=== PATIENT | female | born 2000 | race Hispanic/Latino ===

== ENCOUNTER 2023-06-08 00:35 | Emergency (ER) | payer OTHER, SELFPAY ==
[2023-06-08] VITALS (39 sets, daily range): BP systolic 91–130; BP diastolic 39–103; PULSE 81–137; RESP 15–31; TEMP 36.9; O2SAT 91–100
--- NOTE | ~2023-06-08 | CT_ITS ---
Non-contrast Head CT History: Seizure Technique: Axial non-contrast imaging of the brain was performed. Dose reduction technique was used on this scan by utilizing automated exposure control and iterative reconstruction technique. The dose -length product (DLP) was 605.33 mGy-cm. Findings: There is no evidence of intracranial hemorrhage, mass lesion, or acute infarct. Brain par enchyma appears normal. The ventricles and subarachnoid spaces are normal in size. The calvarium ap pears normal. The visualized paranasal sinuses and mastoid air cells are clear. Impression: No significant abnormality seen. Reviewed, dictated and finalized at location . Impression: No significant abnormality seen.
--- NOTE | 2023-06-08 00:40 | ECG_ITS ---
SEE SCANNED COPY FOR CONFIRMED REPORT MTDD
[2023-06-08 01:10] LABS: Basophils Absolute Auto 0.1 K/mm3 (0.0-0.1); Basophils Percent Auto 0.4 % (0.2-1.2); Eosinophils Absolute Auto 0.4 K/mm3 (0-0.3); Eosinophils Percent Auto 2.5 % (0-4.4); Hematocrit 38.2 % (37.0-47.0); Hemoglobin 11.5 g/dL (12.0-15.0); Immature Granulocyte Absolute 0.15 K/mm3 (0.00-0.031); Immature Granulocyte Percent A 1.1 % (0-0.5); Lymphocytes Absolute Auto 4.96 K/mm3 (0.9-3.2); Lymphocytes Percent Auto 35.1 % (18.3-44.2); Mean Corpuscular HGB Conc 30.1 g/dl (32-36); Mean Corpuscular Volume 79.7 fl (80-100); Mean Platelet Volume 10.7 fl (7.4-10.4); Monocytes Absolute Auto 0.7 K/mm3 (0.1-0.6); Monocytes Percent Auto 4.9 % (2.6-8.5); Neutrophils Absolute Auto 7.9 K/mm3 (1.3-6.7); Platelet Count Result 356 k/mm3 (150-375); Red Blood Count 4.79 M/mm3 (4.2-5.4); Red Cell Distribution Width 16.7 % (11.5-14.5); White Blood Count 14.2 K/mm3 (4.5-10.0)
[2023-06-08] MEDS: SODIUM CHLORIDE 0.9% IV 1,000 ML 999 ML IV CONT (01:13)
[2023-06-08 01:39] LABS: Alanine Aminotransferase 15 U/L (6-35); Albumin Level 4.6 g/dL (3.5-5.1); Alkaline Phosphatase 59 U/L (38-126); Anion Gap 8 mmol/L (4-12); Aspartate Amino Transferase 22 U/L (14-36); Bilirubin,Total 0.3 mg/dL (0.2-1.3); Blood Urea Nitrogen 13 mg/dL (7-17); Calcium 9.7 mg/dL (8.4-10.2); Carbon Dioxide 24 mmol/L (22-30); Chloride 106 mmol/L (98-107); Creatine Kinase 75 U/L (30-135); Estimated CRCL calculation 121 ml/min; Estimated Glomerular Filt Rate > 60; Glucose 127 mg/dL (65-110); Lactic Acid Reflex 2.3 mmol/L (0.7-2.0); Magnesium 2.4 mg/dL (1.6-2.3); Potassium 3.8 mmol/L (3.4-5.0); Sodium 138 mmol/L (137-145)
[2023-06-08 01:47] LABS: SPREG INTERNAL CONTROL Positive; Serum Qual hCG Negative
--- NOTE | 2023-06-08 03:05 | ED.GENADULT ---
HPI - General Adult General Chief complaint: Seizure Stated complaint: seizure like activity Time Seen by Provider: 06/08/23 01:14 Related Data Allergies Allergy/AdvReac Type Severity Reaction Status Date / Time No Known Allergies Allergy Verified 06/08/23 00:40 Course Vital Signs Vital signs: Vital Signs Temperature 98.4 F 06/08/23 00:34 Pulse Rate 131 H 06/08/23 00:34 Respiratory Rate 24 H 06/08/23 00:34 Blood Pressure 126/84 06/08/23 00:34 Pulse Oximetry 100 06/08/23 00:34 Oxygen Delivery Room Air 06/08/23 00:34 Temperature 98.4 F 06/08/23 00:34 Pulse Rate 108 H 06/08/23 03:26 Respiratory Rate 20 06/08/23 03:26 Blood Pressure 109/69 06/08/23 03:26 Pulse Oximetry 100 06/08/23 03:26 Oxygen Delivery Room Air 06/08/23 00:44 Medical Decision Making Vital Signs Vital Signs: Vital Signs Temperature 98.4 F 06/08/23 00:34 Pulse Rate 131 H 06/08/23 00:34 Respiratory Rate 24 H 06/08/23 00:34 Blood Pressure 126/84 06/08/23 00:34 Pulse Oximetry 100 06/08/23 00:34 Oxygen Delivery Room Air 06/08/23 00:34 Temperature 98.4 F 06/08/23 00:34 Pulse Rate 108 H 06/08/23 03:26 Respiratory Rate 20 06/08/23 03:26 Blood Pressure 109/69 06/08/23 03:26 Pulse Oximetry 100 06/08/23 03:26 Oxygen Delivery Room Air 06/08/23 00:44 Lab Data 06/08/23 01:03 06/08/23 01:03 Labs: Lab Results 06/08/23 Range/Units 01:03 WBC 14.2 H (4.5-10.0) K/mm3 RBC 4.79 (4.2-5.4) M/mm3 Hgb 11.5 L (12.0-15.0) g/dL Hct 38.2 (37.0-47.0) % MCV 79.7 L (80-100) fl MCH 24.0 L (26-34) pg MCHC 30.1 L (32-36) g/dl RDW 16.7 H (11.5-14.5) % Plt Count 356 (150-375) k/mm3 MPV 10.7 H (7.4-10.4) fl Immature Gran % (Auto) 1.1 H (0-0.5) % Neut % (Auto) 56.0 (45.5-73.1) % Lymph % (Auto) 35.1 (18.3-44.2) % [place] % (Auto) 4.9 (2.6-8.5) % Eos % (Auto) 2.5 (0-4.4) % Baso % (Auto) 0.4 (0.2-1.2) % Lymph # (Auto) 4.96 H (0.9-3.2) K/mm3 [place] # (Auto) 0.7 H (0.1-0.6) K/mm3 Eos # (Auto) 0.4 H (0-0.3) K/mm3 Baso # (Auto) 0.1 (0.0-0.1) K/mm3 Abs Immat Gran (auto) 0.15 H (0.00-0.031) K/mm3 Absolute Neuts (auto) 7.9 H (1.3-6.7) K/mm3 Absolute Nucleated RBC 0.000 (0.0-0.012) K/mm3 Nucleated RBC % 0.0 (0.0-0.2) % Sodium 138 (137-145) mmol/L Potassium 3.8 (3.4-5.0) mmol/L Chloride 106 (98-107) mmol/L Carbon Dioxide 24 (22-30) mmol/L Anion Gap 8 (4-12) mmol/L BUN 13 (7-17) mg/dL Creatinine 0.70 (0.7-1.0) mg/dL Estim Creat Clear Calc 121 ml/min Estimated GFR > 60 (59 - ) Glucose 127 H (65-110) mg/dL Lactic Acid 2.3 H (0.7-2.0) mmol/L Calcium 9.7 (8.4-10.2) mg/dL Magnesium 2.4 H (1.6-2.3) mg/dL Total Bilirubin 0.3 (0.2-1.3) mg/dL AST 22 (14-36) U/L ALT 15 (6-35) U/L Alkaline Phosphatase 59 (38-126) U/L Total Creatine Kinase 75 (30-135) U/L Total Protein 8.0 (6.3-8.2) g/dL Albumin 4.6 (3.5-5.1) g/dL Serum HCG, Qual Negative Discharge Plan Discharge Clinical Impression: New onset seizure Patient Disposition: Home, Self-Care Condition: Improved Instructions: Antibiotic Form, New-Onset Seizure in Adults (ED) Additional Instructions: You are evaluated in the emergency department regarding your new onset of seizure. You were instructed to follow-up with a neurologist and your provided with referral and instructed to call tomorrow and make an appointment. Your CT brain and blood work obtained today were unremarkable. Please return to the emergency department if any new or worsening symptoms develop. You also provided with seizure precautions including no driving, operating machinery, unsupervised swimming until you are cleared by Neurology. Follow-up/Referrals: River Vaughn MD [Physician] - 3 Days PHYSICIAN,SENIOR PRODUCT ENGINEER [Primary Care Provider] - Time of Disposition: 04:17
[2023-06-08 04:06] LABS: Reflex Lactic Acid Yes or No Add Lactic
--- NOTE | 2023-06-15 23:46 | ED.GENADULT ---
HPI - General Adult General Chief complaint: Seizure Stated complaint: seizure like activity Time Seen by Provider: 06/08/23 01:14 History of Present Illness HPI narrative: Patient presents to the ED after new onset sizure activity. Patient denies any previous seizure episodes. Denies any falls or head injury. Seizure was unwitnessed, however, brother did find the patient drooling and post ictal. Upon arrival, patient is A&Ox3. Patient is denying any pain or any symptoms at this time. Related Data Allergies Allergy/AdvReac Type Severity Reaction Status Date / Time No Known Allergies Allergy Verified 06/08/23 00:40 Review of Systems Review of Systems: All systems reviewed & are unremarkable except as noted in HPI and below (HPI) Exam Const: General: healthy appearing, no acute distress and alert Nutritional Appearance: well nourished Orientation/consciousness: patient oriented x3 HENMT: Head: normal to inspection Ears: external ears normal Face and sinus: normal facial exam Mouth: Yes moist mucous membranes Eyes: Conjunctivae: conjunctivae normal Pupils: Equal, round and reactive pupils present EOM: EOMs intact bilaterally Neck: Neck: normal visual inspection and no lymphadenopathy Chest: Chest palpation & inspection: normal inspection of the chest Resp: Effort & Inspection: normal respiratory effort Auscultation: clear to auscultation bilaterally Cardio: Rate: regular rate Rhythm: regular rhythm GI: GI Palp: Yes Soft to palpation, No Tenderness to palpation present (GI), No Guarding due to palpation present (GI) and No Rebound tenderness present Auscultation: normal bowel sounds Skin: General skin exam: normal color Rashes: no rashes Wounds: no wounds Neuro: General: patient oriented x3, moves all extremities, no focal motor deficits and CN's II-XI intact bilaterally Speech: normal speech Gait exam (Neuro): Normal gait present Extrem: General: no clubbing, cyanosis or edema and no pedal edema Psych: Mental Status: mental status grossly normal Affect: normal affect Course Vital Signs Vital signs: Vital Signs Temperature 98.4 F 06/08/23 00:34 Pulse Rate 131 H 06/08/23 00:34 Respiratory Rate 24 H 06/08/23 00:34 Blood Pressure 126/84 06/08/23 00:34 Pulse Oximetry 100 06/08/23 00:34 Oxygen Delivery Room Air 06/08/23 00:34 Temperature 98.4 F 06/08/23 00:34 Pulse Rate 108 H 06/08/23 04:23 Respiratory Rate 21 H 06/08/23 04:23 Blood Pressure 130/66 06/08/23 04:23 Pulse Oximetry 98 06/08/23 04:23 Oxygen Delivery Room Air 06/08/23 00:44 Medical Decision Making MDM Narrative Medical decision making narrative: Blood work and CT brain obtained and reviewed by me revealing no acute process. Patient and mother updated at bedside and instructed that they will need to follow up with Neurology in 3-5 days and they are both agreeable. Patients questions were all answered. She was discharged in stable condition. Vital Signs Vital Signs: Vital Signs Temperature 98.4 F 06/08/23 00:34 Pulse Rate 131 H 06/08/23 00:34 Respiratory Rate 24 H 06/08/23 00:34 Blood Pressure 126/84 06/08/23 00:34 Pulse Oximetry 100 06/08/23 00:34 Oxygen Delivery Room Air 06/08/23 00:34 Temperature 98.4 F 06/08/23 00:34 Pulse Rate 108 H 06/08/23 04:23 Respiratory Rate 21 H 06/08/23 04:23 Blood Pressure 130/66 06/08/23 04:23 Pulse Oximetry 98 06/08/23 04:23 Oxygen Delivery Room Air 06/08/23 00:44 Lab Data 06/08/23 01:03 06/08/23 01:03 Labs: Lab Results 06/08/23 Range/Units 01:03 WBC 14.2 H (4.5-10.0) K/mm3 RBC 4.79 (4.2-5.4) M/mm3 Hgb 11.5 L (12.0-15.0) g/dL Hct 38.2 (37.0-47.0) % MCV 79.7 L (80-100) fl MCH 24.0 L (26-34) pg MCHC 30.1 L (32-36) g/dl RDW 16.7 H (11.5-14.5) % Plt Count 356 (150-375) k/mm3 MPV 10.7 H (7.4-10.4) fl Immature Gran % (Auto) 1.1 H (0-0.5) % Dash
== END 2023-06-08 04:25 | disposition home or self-care (01) ==
PROVIDERS: Emergency Provider Emergency Medicine
DX: R56.9 Unspecified convulsions (principal); R00.0 Tachycardia, unspecified
CPT/HCPCS: 36415; 70450; 80053; 82550; 83605; 83735; 84703; 85025; 93005; 96360; 99284; J7030

== ENCOUNTER 2023-11-12 17:28 | Observation (INO) | payer MEDICAID, SELFPAY ==
[2023-11-12] VITALS (7 sets, daily range): BP systolic 119–132; BP diastolic 67–86; PULSE 90–152; RESP 18–29; TEMP 36.4–37; O2SAT 99–100
--- NOTE | ~2023-11-12 | CT_ITS ---
CT brain wo con Ordering provider: Shan Pimentel MD History: 23 years Female with . head injury, seizure . Comparison: June 08, 2023 Technique: CT of the head without contrast. Radiation reduction technique utilized. The dose-length product was 529.67 mGy-cm. FINDINGS: BRAIN PARENCHYMA AND CSF SPACES: No midline shift, mass effect or hemorrhage. The brain parenchyma a nd CSF spaces are otherwise normal. VISUALIZED PARANASAL SINUSES: Well aerated. MASTOIDS: Well aerated. BONES: The bones appear intact. SOFT TISSUES: Visualized nasopharynx is normal. Superficial soft tissues are normal. IMPRESSION: No acute intracranial findings. Reviewed, dictated and finalized at location A.
--- NOTE | ~2023-11-12 | MR_ITS ---
EXAMINATION: MR brain/brain stem wo/w con DATE: 11/13/2023 07:12 INDICATION: Seizure. TECHNIQUE: Magnetic resonance imaging (MRI) of the brain and brainstem was performed without and with 18 mL MultiHance intravenous contrast. COMPARISON: Head CT 11/12/2023 FINDINGS: The hippocampi are normal and symmetric. There is no intracranial hemorrhage, acute infarct ion, or abnormal intracranial mass lesion. The ventricles are normal in size. There is mild mucosal t hickening in the paranasal sinuses. The orbits are normal. The mastoid air cells are normal. IMPRESSION: 1. Normal brain. Reviewed, dictated and finalized at location A. IMPRESSION: 1. Normal brain.
--- NOTE | 2023-11-12 17:51 | ECG_ITS ---
Test Date: 2023-11-12 17:56:03 Measurements Intervals [place] Rate: 139 P: 45 [place]: 141 QRS: 50 QRSD: 85 T: 34 QT: 299 QTc: 455 Interpretive Statements SINUS TACHYCARDIA BORDERLINE T WAVE ABNORMALITY- ANT/INF LEADS BASELINE ARTIFACT- I, III, AVR, AVL, AVF, V1-V6 ABNORMAL ECG No previous ECG available for comparison Electronically Signed On 11-12-2023 20:19:25 CDT by Timmy Mary D.O.
--- NOTE | 2023-11-12 17:55 | ED.GENADULT ---
HPI - General Adult General Chief complaint: Seizure Stated complaint: seizure Time Seen by Provider: 11/12/23 17:33 History of Present Illness HPI narrative: 23-year-old female presents to the emergency department for evaluation after head a seizure. This would be the patient's 2nd seizure. Patient's 1st seizure was in June. At that time patient was evaluated by Neurology. Patient had a negative head CT at that time. Patient was recommended to have an outpatient MRI. Patient states she has not yet had this MRI. EMS states that the patient was at [facility] when she had a syncopal episode. Family states that the seizure lasted approximately 5 minutes. Related Data Home Medications Medication Instructions Recorded Confirmed No Home Medications 07/11/23 11/12/23 Allergies Allergy/AdvReac Type Severity Reaction Status Date / Time No Known Allergies Allergy Verified 11/12/23 20:10 Review of Systems Review of Systems: All systems reviewed & are unremarkable except as noted in HPI and below PMFSH Past Medical History Medical History (Updated 11/12/23 @ 20:26 by Shan Pimentel MD) Seizure disorder Family History Family History (Updated 11/12/23 @ 20:07 by Lorena Hunter RN) Other Diabetes mellitus Social History Social History Smoking status: Never smoker Alcohol intake: never Substance use: never Do You Feel Safe in your Home?: Yes Lack of Transportation: No Lack of Food: Never True Current Housing: I Have Housing Concerned About Future Housing: No Difficulty Paying Gas/Electric Bills: No Difficulty Paying for Meds: No Currently Unemployed: No Education: High School Diploma/GED Difficulty w/ Childcare or Family Care: No Spiritual care concerns: No Exam Narrative: APPEARANCE: Well appearing, no pain, no distress, well-nourished. HEAD: normocephalic, atraumatic. Mouth: Minor bites to tongue bilaterally, no bleeding EYES: PERRLA/EOMI, conjunctivae clear. NOSE: Normal no drainage EARS:TMS clear with good light reflex. THROAT: Pharynx clear, no exudate. NECK: Supple. No adenopathy, no masses. RESPIRATORY: Airway patent, respirations nonlabored. Clear to auscultation bilaterally, no rales, rhonchi, wheezing. CARDIOVASCULAR: Regular rate and rhythm without murmurs rubs or gallops. ABDOMINAL: Soft, nontender, nondistended, normal bowel sounds MUSCULOSKELETAL: Moves all extremities. Strength/ROM intact, No edema, No calf tenderness. NEURO: Alert. Cranial nerves II through XII intact. Good gait. Good coordination SKIN: Warm, dry. Normal Color Course Vital Signs Vital signs: Vital Signs Temperature 97.5 F L 11/12/23 17:38 Pulse Rate 152 H 11/12/23 17:38 Respiratory Rate 29 H 11/12/23 17:38 Blood Pressure 121/67 11/12/23 17:38 Pulse Oximetry 100 11/12/23 17:38 Oxygen Delivery Room Air 11/12/23 17:38 Temperature 98.6 F 11/12/23 19:08 Pulse Rate 122 H 11/12/23 19:08 Respiratory Rate 24 H 11/12/23 19:08 Blood Pressure 119/67 11/12/23 19:08 Pulse Oximetry 100 11/12/23 19:08 Oxygen Delivery Room Air 11/12/23 17:38 Medical Decision Making [facility] Narrative Medical decision making narrative: 23-year-old female present to the emergency department for evaluation after having her 2nd seizure ever. This would be her 2nd seizure in 5 months. Patient is afebrile but does have a leukocytosis of 13.4. This could be reactive. Patient has a stable hemoglobin of 12.2. Patient does have mild hyperglycemia at 1:24 a.m.. No other acute abnormalities on her CMP. Patient does have blood on her UA, patient denies any urinary tract symptoms and is currently menstruating. Patient had a negative drug screen. Head CT showed no acute abnormalities. Patient had previously been told to have an outpatient MRI but patient does not have health insurance so she was unable to get this done.
[2023-11-12 18:12] LABS: Basophils Absolute Auto 0.1 K/mm3 (0.0-0.1); Basophils Percent Auto 0.4 % (0.2-1.2); Eosinophils Absolute Auto 0.2 K/mm3 (0-0.3); Eosinophils Percent Auto 1.3 % (0-4.4); Hematocrit 40.1 % (37.0-47.0); Hemoglobin 12.2 g/dL (12.0-15.0); Immature Granulocyte Percent A 0.7 % (0-0.5); Lymphocytes Absolute Auto 4.36 K/mm3 (0.9-3.2); Lymphocytes Percent Auto 32.6 % (18.3-44.2); Mean Corpuscular HGB Conc 30.4 g/dl (32-36); Mean Corpuscular Hemoglobin 25.1 pg (26-34); Mean Corpuscular Volume 82.5 fl (80-100); Mean Platelet Volume 10.4 fl (7.4-10.4); Monocytes Absolute Auto 0.6 K/mm3 (0.1-0.6); Monocytes Percent Auto 4.6 % (2.6-8.5); Neutrophils Absolute Auto 8.1 K/mm3 (1.3-6.7); Neutrophils Percent Auto 60.4 % (45.5-73.1); Platelet Count Result 322 k/mm3 (150-375); Red Blood Count 4.86 M/mm3 (4.2-5.4); Red Cell Distribution Width 16.9 % (11.5-14.5); White Blood Count 13.4 K/mm3 (4.5-10.0)
--- NOTE | 2023-11-12 18:15 | PC.NURSE ---
Pt to CT scan via stretcher, on tele monitor
[2023-11-12 18:23] LABS: Alanine Aminotransferase 15 U/L (6-35); Albumin Level 4.3 g/dL (3.5-5.1); Alkaline Phosphatase 64 U/L (38-126); Anion Gap 14 mmol/L (4-12); Aspartate Amino Transferase 21 U/L (14-36); Bilirubin,Total 0.1 mg/dL (0.2-1.3); Blood Urea Nitrogen 10 mg/dL (7-17); Calcium 8.7 mg/dL (8.4-10.2); Carbon Dioxide 19 mmol/L (22-30); Chloride 106 mmol/L (98-107); Estimated CRCL calculation 95 ml/min; Estimated Glomerular Filt Rate > 60; Glucose 124 mg/dL (65-110); Magnesium 2.3 mg/dL (1.6-2.3); Potassium 3.9 mmol/L (3.4-5.0); Sodium 139 mmol/L (137-145)
[2023-11-12] MEDS: SODIUM CHLORIDE 0.9% IV 1,000 ML 999 ML IV CONT ×2 (18:28→20:19)
[2023-11-12 18:41] LABS: Bacteria Urine Rare /hpf; Granular Casts Urine Present /lpf; Need Manual Microscopic Reviewed; RBC Urine >100 /hpf (0-2); Squamous Epithelial Cell Urine Occasional /hpf (Few)
[2023-11-12 18:42] LABS: Add Urine Microscopic? YES; Appearance Urine Cloudy (Clear); Bilirubin Urine Negative (Negative); Blood Urine 3+ (Negative); Color Urine Orange (Yellow); Glucose Urine UA Negative (Negative); Ketones Urine Trace mg/dL (Negative); Leukocyte Esterase Ur 1+ LEU/UL (Negative); Nitrate Urine Negative (Negative); Protein Urine 2+ mg/dL (Negative); Specific Grav Ur 1.027 (1.001-1.035)
[2023-11-12 18:53] LABS: Amphetamine Screen Urine Negative (Negative); Barbiturate Screen Urine Negative (Negative); Benzodiazepines Screen Urine Negative (Negative); Cannabinoid Screen Urine Negative (Negative); Cocaine Screen Urine Negative (Negative); Methadone Screen Urine Negative (Negative); Opiate Screen Urine Negative (Negative); Phencyclidine Screen Urine Negative (Negative)
--- NOTE | 2023-11-12 19:20 | PM.IMHP ---
H&P: HPI History of Present Illness Date/Time: 11/12/23 21:00 Chief Complaint: Seizure. Narrative: This is a very pleasant 23-year-old female with history of seizure in June 2023 presented to the emergency department via EMS for evaluation of seizure activity. The patient provides the following history. She was in her usual state of health when she got up this morning and went grocery shopping with her family this afternoon. According the patient's mother, she suddenly fell backwards on the tile floor and had full body convulsions with frothing of the mouth. This lasted for upwards of 4 minutes before resolving without intervention. The patient did bite the right side of her tongue but there were no reports of incontinence. She does not recall having any prodromal symptoms prior to the seizure activity. She has no complaints at the time my evaluation and denies headache, focal weakness, visual changes, muscle aches, chest pain, shortness of breath, nausea, and vomiting. She has not had any lack of sleep and denies drug and alcohol use. She is not on any medications at home. In the ED: Vital signs on arrival include a blood pressure 121/67, pulse 152, respiratory rate 19, SpO2 100% room air, temperature 97.5?. Labs were significant for WBC count of 13.4, carbon dioxide 18, anion gap 14, glucose 124. Urine drug screen was negative. Brain CT showed no acute findings. She is being admitted in this setting for close monitoring and neurology consultation tomorrow. Review of Systems Review of Systems: 12 systems were reviewed and are negative except for as per HPI. [facility] Past Medical History Medical History (Updated 11/12/23 @ 23:02 by Latisha Alves PA-C) Single seizure (06/2023) Surgical History Surgical History (Updated 11/12/23 @ 23:02 by Latisha Alves PA-C) No history of previous surgery Family History Family History (Updated 11/12/23 @ 23:03 by Latisha Alves PA-C) Other Diabetes mellitus Seizure Social History Social History (Updated 11/12/23 @ 23:03 by Latisha Alves PA-C) Social History: Surrogate medical decision maker: Jacinda Fritz, mother. Code status: Full code. Smoking status: Never smoker Alcohol intake: never Substance use: never Do You Feel Safe in your Home?: Yes Lack of Transportation: No Lack of Food: Never True Current Housing: I Have Housing Concerned About Future Housing: No Difficulty Paying Gas/Electric Bills: No Difficulty Paying for Meds: No Currently Unemployed: No Education: High School Diploma/GED Difficulty w/ Childcare or Family Care: No Spiritual care concerns: No Meds Home Medications and Allergies Home Medications Medication Instructions Recorded Confirmed Type No Home Medications 07/11/23 11/12/23 History Allergies Allergy/AdvReac Type Severity Reaction Status Date / Time No Known Allergies Allergy Verified 11/12/23 20:10 Vital Signs Vital Signs - 24 hr 11/12/23 17:38 11/12/23 17:58 11/12/23 18:04 Temperature 97.5 F L Pulse Rate 152 H 142 H 139 H Respiratory Rate 29 H 18 Blood Pressure 121/67 123/70 Pulse Oximetry 100 100 Oxygen Delivery Room Air 11/12/23 18:46 11/12/23 19:08 11/12/23 19:08 Temperature 98.6 F Pulse Rate 117 H 114 H 122 H Respiratory Rate 20 24 H Blood Pressure 119/67 Pulse Oximetry 100 100 Oxygen Delivery Exam Narrative: General: Well-developed, nontoxic-appearing female sitting up in bed. Weight: 94.3 kg. BMI: 36.8. HEENT: Normocephalic, atraumatic. PERRL, EOMI. Sclera anicteric. Oral mucosa moist. Abrasion on the right side of the anterior thirds of the tongue. Neck: Supple. No midline vertebral tenderness. Respiratory: Lungs are clear to auscultation bilaterally. Cardiovascular: Regular rate and rhythm with S1-S2. Gastrointestinal: Abdomen is soft, nontender, and nondistended with positive bowel sounds. No organomegaly. Skin: Warm and dry.
--- NOTE | 2023-11-12 20:47 | ADMGEN ---
This patient, Niraj Lau, was admitted to 2 Medical Room 246-01. Patient/family oriented to hospital policies and general routines including ID bracelet, bed and alarms, visiting hours, pain management, procedures, bathroom and other care routines, personal items, smoking policy, room service/diet, and visiting hours. Information on how to activate the Rapid Response Team has been discussed. Patient/Family are encouraged to report perceived risks to care and to ask questions if they do not understand what they are told or what they should do.
[2023-11-13] VITALS (9 sets, daily range): BP systolic 115–124; BP diastolic 62–72; PULSE 69–125; RESP 14–18; TEMP 36.7–36.8; O2SAT 99–100
[2023-11-13 05:43] LABS: Hematocrit 36.1 % (37.0-47.0); Mean Corpuscular HGB Conc 30.5 g/dl (32-36); Mean Corpuscular Hemoglobin 24.6 pg (26-34); Mean Corpuscular Volume 80.6 fl (80-100); Mean Platelet Volume 10.1 fl (7.4-10.4); Platelet Count Result 320 k/mm3 (150-375); Red Blood Count 4.48 M/mm3 (4.2-5.4); Red Cell Distribution Width 17.1 % (11.5-14.5); White Blood Count 13.4 K/mm3 (4.5-10.0)
[2023-11-13 05:56] LABS: Anion Gap 5 mmol/L (4-12); Blood Urea Nitrogen 8 mg/dL (7-17); Calcium 8.3 mg/dL (8.4-10.2); Carbon Dioxide 24 mmol/L (22-30); Chloride 110 mmol/L (98-107); Estimated CRCL calculation 138 ml/min; Estimated Glomerular Filt Rate > 60; Glucose 89 mg/dL (65-110); Magnesium 2.3 mg/dL (1.6-2.3); Potassium 3.9 mmol/L (3.4-5.0); Sodium 139 mmol/L (137-145)
--- NOTE | 2023-11-13 10:50 | PM.IMPN ---
Progress Note: A&P Assessment and Plan (1) Seizure: Code(s): R56.9 - Unspecified convulsions Status: Acute Assessment and Plan: The patient presented to the emergency department for evaluation after seizure. This will be her 2nd seizure, the 1st which occurred in June of this year. She saw Dr. Galaviz as an outpatient after that seizure and a workup was ordered however she did not have that done as she did not have insurance. Consider cardiogenic vs neurologic. Monitored on telemetry overnight but no acute findings. Brain MRI negative. EEG ordered. Neuro consult. Consider starting Keppra but will differ to neurology. Continue seizure precautions. Plan DVT prophylaxis - SCDs Code status - full Subjective Date/time seen: 11/13/23 10:50 Interval history: 23yo healthy female here for recurrent seizure. Slept well last night. No chest pain or shortness of breath. No nausea or vomiting. She denies history of tobacco, alcohol or drug use. No numbness, tingling or weakness in her extremities. No pre-seizure symptoms such as strong odor, diaphoresis, chest pain or fluttering or strange feeling Exam Narrative: AF 98.1 118/62 81 18 99% ra Gen - NARD Chest - CTA bilaterally, nml RR CV - RRR S1/S2. Tele showing no significant dysrhythmias Abd - Soft, NT/ND, Positive BS Ext - No pedal edema Neuro - Alert and oriented. Nonfocal exam. Psych - Nml mood and affect Skin - Warm and dry Objective Data Vital Signs Vital Signs: Vital Signs - 24 hr 11/12/23 17:38 11/12/23 17:58 11/12/23 18:04 Temperature 97.5 F L Pulse Rate 152 H 142 H 139 H Respiratory Rate 29 H 18 Blood Pressure 121/67 123/70 Pulse Oximetry 100 100 Oxygen Delivery Room Air 11/12/23 18:46 11/12/23 19:08 11/12/23 19:08 Temperature 98.6 F Pulse Rate 117 H 114 H 122 H Respiratory Rate 20 24 H Blood Pressure 119/67 Pulse Oximetry 100 100 Oxygen Delivery 11/12/23 20:59 11/12/23 21:09 11/13/23 03:26 Temperature 98.4 F 98.1 F Pulse Rate 100 81 Respiratory Rate 18 18 Blood Pressure 132/86 118/62 Pulse Oximetry 99 99 Oxygen Delivery Room Air 11/12/23 21:04 11/13/23 00:00 11/13/23 04:00 Temperature Pulse Rate 90 82 81 Respiratory Rate Blood Pressure Pulse Oximetry Oxygen Delivery 11/13/23 08:00 Temperature Pulse Rate Respiratory Rate Blood Pressure Pulse Oximetry Oxygen Delivery Room Air Intake/Output Intake/Output: Intake & Output 11/10/23 11/11/23 11/12/23 11/13/23 23:59 23:59 23:59 23:59 Intake Total 1999 540 Balance 1999 540 Meds/Results Medications: Active Medications Generic Name Dose Route Start Last Admin Trade Name Freq PRN Reason Stop Dose Admin Acetaminophen 650 mg 11/12/23 23:04 Acetaminophen 325 Mg Tablet PO Q6H PRN Mild Pain (1-3) or Fever Radiology Results: ITS Impressions Head CT 11/12/23 18:39 IMPRESSION: No acute intracranial findings. Brain MRI 11/13/23 08:27 IMPRESSION: 1. Normal brain. Labs Labs: Laboratory Results - last 24 hr 11/12/23 11/12/23 11/12/23 18:07 18:08 18:13 WBC 13.4 H RBC 4.86 Hgb 12.2 Hct 40.1 MCV 82.5 MCH 25.1 L MCHC 30.4 L RDW 16.9 H Plt Count 322 MPV 10.4 Immature Gran % (Auto) 0.7 H Neut % (Auto) 60.4 Lymph % (Auto) 32.6 [place] % (Auto) 4.6 Eos % (Auto) 1.3 Baso % (Auto) 0.4 Lymph # (Auto) 4.36 H [place] # (Auto) 0.6 Eos # (Auto) 0.2 Baso # (Auto) 0.1 Abs Immat Gran (auto) 0.10 H Absolute Neuts (auto) 8.1 H Absolute Nucleated RBC 0.000 Nucleated RBC % 0.0 Sodium 139 Potassium 3.9 Chloride 106 Carbon Dioxide 19 L Anion Gap 14 H BUN 10 Creatinine 0.90 Estim Creat Clear Calc 95 Estimated GFR > 60 Glucose 124 H Lactic Acid Cancelled Calcium 8.7 Magnesium 2.3 Total Bilirubin 0.1 L AST 21 ALT 15 A
--- NOTE | 2023-11-13 13:49 | WPDNEURCNPN ---
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 If this gives her drowsiness he can take at Keppra XR 750 mg 2 tablets at bedtime. Further adjustment if any upon her seizure control and side effects and blood levels can be made as an outpatient. She does need an MRI of the brain and EEG. These are and progress today and we should follow up the results of these. She should to follow-up in my office after 1 or 2 months. She is also advised not to drive for 6 months after the last spell of seizure. Her neurologic examination findings are within acceptable normal limits. I have explained this to the patient and her mother was also present the time of the evaluation. Consult date: 11/13/23 HPI: Niraj Lau is a 23 year old female with a prior history of single spell of seizure presented to the hospital yesterday after having had a seizure-like spell in [facility]. She is apparently walking and suddenly she became confused but kept walking for few more steps. Her family members were there. They caught her since he passed out and she had jerking of the body. According the patient's mother, she suddenly fell backwards on the tile floor and had full body convulsions with frothing of the mouth. This lasted for upwards of 4 minutes before resolving without intervention. The patient did bite the right side of her tongue but there were no reports of incontinence. She does not recall having any prodromal symptoms prior to the seizure activity. She has no complaints at the time my evaluation and denies headache, focal weakness, visual changes, muscle aches, chest pain, shortness of breath, nausea, and vomiting. She has not had any lack of sleep and denies drug and alcohol use. She is not on any medications at home.. Review of Systems Constitutional: Constitutional: Denies chills, Denies fever(s) and Denies weight loss Eyes: Eyes: Denies diplopia and Denies loss of vision ENT: Denies dizziness, Denies hearing loss and Denies tinnitus Cardiovascular: Cardiovascular: Denies chest pain, Denies syncope and Denies dyspnea Respiratory: Respiratory: Denies cough, Denies dyspnea and Denies wheezing Gastrointestinal: Gastrointestinal: Denies abdominal pain, Denies change in bowel habits and Denies vomiting Genitourinary: Genitourinary: Denies urinary incontinence Musculoskeletal: Musculoskeletal: Denies arthralgias and Denies joint swelling Integumentary/Breasts: Skin/Breast: Denies new lesions and Denies rash Neurologic: Reports as per HPI, Denies dizziness, Denies syncope and Denies loss of vision Psychiatric: Psychiatric: Denies anxiety and Denies depression Endocrine: Endocrine: Denies cold intolerance and Denies heat intolerance Hematologic/Lymphatic: Hematologic/Lymphatic: Denies easy bleeding and Denies easy bruising Allergic/Immunologic: Allergic/Immunologic: Denies no additional allergic/immunologic complaints and Denies wheezing PMFSH Past Medical History Medical History (Updated 11/13/23 @ 13:51 by Gato Galaviz MD) 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 Code status: Full code. Smoking status: Never smoker Alcohol intake: never Substance u
[2023-11-13 14:29] LABS: BEDSIDEPREGUCG Negative (Negative)
[2023-11-14] VITALS: PULSE 79
[2023-11-14 04:00] VITALS: PULSE 78
[2023-11-14 04:49] VITALS: BP 119/75; PULSE 77; RESP 18; TEMP 36.8; O2SAT 99
[2023-11-14 08:00] VITALS: PULSE 80
[2023-11-14 08:10] VITALS: O2SAT 99
[2023-11-14] MEDS: levETIRAcetam Tablet 250 MG, levETIRAcetam Tablet 500 MG 750 MG PO (08:41)
--- NOTE | 2023-11-14 10:00 | PM.DS ---
DS: Admitting Diagnosis Discharge Date 11/14/23 Admitting Diagnosis Seizure DS: Discharge Diagnosis Discharge Diagnosis (1) Seizure: Code(s): R56.9 - Unspecified convulsions Status: Acute DS: Summary Hospital Course Reason for hospitalization: 23yo healthy female here for recurrent seizure. Please see H&P for details. Hospital Course: The patient presented to the emergency department for evaluation after seizure. This was her 2nd seizure, the 1st which occurred in June of this year. She saw Dr. Galaviz as an outpatient after that seizure and a workup was ordered however she did not have that done as she did not have insurance. Consider cardiogenic vs neurologic. She was monitored on telemetry but no acute findings noted. Brain MRI negative. EEG completed but results pending. Neuro consult and appreciate their input. Keppra was recommended and started. She was informed that she can not drive and she voices understanding of this. She remained seizure free. She overall did well and was able to be discharged home on 11/14/23. test was negative. Status at Discharge Cognitive/behavioral status at discharge: stable Time Spent with Patient Time attestation: Total time spent providing and/or coordinating discharge services: 32 minutes Time spent: Greater than 30 minutes Exam Narrative: AF 98.2 119/75 77 18 99% ra Gen - NARD Chest - CTA bilaterally, nml RR CV - RRR S1/S2. Tele showing no significant dysrhythmias Abd - Soft, NT/ND, Positive BS Ext - No pedal edema Neuro - Alert and oriented. Nonfocal exam. Psych - Nml mood and affect Skin - Warm and dry DS: Data Data Completed and Pending Labs on day of discharge: Labs from last 24 hours 11/12/23 18:15 POC Urine HCG, Qual Negative Discharge Plan Discharge Attending physician on discharge: Alex Castillo Consulting providers: Gato Galaviz Discharging Clinician: Alex Castillo Anticipated Discharge Date/Time: 11/14/23 10:06 Patient Disposition: Home, Self-Care Activity: no driving Diet: regular Discharge Instructions: Avoid swimming alone, operating equipment or doing anything that would cause you harm if you blacked out. No driving until seen by Neurology. Contact your doctor or call 911 and come to the Emergency Room if you have seizure-like activity or other worrisome symptoms. Follow-up with your primary care provider in 1-2 weeks. Please call for appointment. Follow-up with your neurology in 1-2 months. Please call for appointment. Thank you for using [facility] for your health care needs. Patient Instructions: Antibiotic Form, Pain Management (DC) Stand Alone Forms: General Discharge Information Follow-up/Referrals: Gato Galaviz MD [Physician] - Call for Appointment PHYSICIAN,WORKERS COMPENSATION SPECIALIST [Primary Care Provider] - Call for Appointment Discharge Medications: New levetiracetam 750 mg Tablet 750 mg PO Q12HR Qty: 60 2RF Continued No Home Medications Date of admission: 11/12/23 18:57 Primary Care Provider: PHYSICIAN,WORKERS COMPENSATION SPECIALIST Admitting Provider: Alex Castillo Attending physician on admission: Alex Castillo Condition: Stable Hospitalist MIPS Heart Failure (Exclusion) Patient has history of Heart Transplant or Left Ventricular Assistive Device?: No IF YES, STOP HERE Heart Failure (Qualifier) Patient has current or prior documentation of LVEF less than or equal to 40%, or mod/servere depressed LVSF?: No IF NO, STOP HERE
--- NOTE | 2023-11-14 11:39 | WPDNEUROLOGY ---
Neurology EEG Report General Information Date of Study: 11/13/23 TEST EEG DIAGNOSIS seizures CONDITION OF RECORDING awake drowsy and sleep EEG NUMBER [id number] CLINICAL HISTORY history of seizures EEG DESCRIPTION basic resting occipital frequency consists of well-organized low voltage 8 to 10 hertz per 2nd alpha admixed with low-voltage 15 to 21 hertz per 2nd beta activity. Good joseph posterior gradient noted. Low-voltage beta activity seen diffusely admixed with waxing and waning posterior alpha rhythm during drowsiness. Bilateral symmetrical sleep activities noted with symmetrical sleep spindles. Photic stimulation not done. Hyperventilation not done. Multiple movements artifacts also noted during the tracing. IMPRESSION No significant abnormalities noted particularly there is no evidence of any focal her paroxysmal discharge clinical correlation recommended
--- NOTE | 2023-11-22 08:54 | PC.NURSE ---
EEG shows no significant abnormalities. Dr. Anna james.
== END 2023-11-14 11:40 | disposition home or self-care (01) ==
LOC: ANHED 18:30 → ANH2MED 20:00
PROVIDERS: Physician Assistant; Admitting Provider Internal Medicine; Emergency Provider Emergency Medicine; Visit Provider Internal Medicine
DX: G40.219 Localization-related (focal) (partial) symptomatic epilepsy and epileptic syndromes with complex partial seizures, intractable, without status epilepticus (principal)
CPT/HCPCS: 36415; 70450; 70553; 80048; 80053; 80307; 81001; 81025; 83735; 84443; 85025; 85027; 87086; 87088; 93005; 95816; 96360; 96361; 99285; A9270; A9577; G0378; G0379; J7030

== ENCOUNTER 2024-01-10 06:57 | Outpatient (CLI) | payer MEDICAID, SELFPAY ==
[2024-01-10 07:54] LABS: Basophils Absolute Auto 0.1 K/mm3 (0.0-0.1); Basophils Percent Auto 0.4 % (0.2-1.2); Eosinophils Absolute Auto 0.2 K/mm3 (0-0.3); Eosinophils Percent Auto 1.5 % (0-4.4); Hematocrit 41.1 % (37.0-47.0); Hemoglobin 12.6 g/dL (12.0-15.0); Immature Granulocyte Absolute 0.04 K/mm3 (0.00-0.031); Immature Granulocyte Percent A 0.4 % (0-0.5); Lymphocytes Absolute Auto 3.71 K/mm3 (0.9-3.2); Lymphocytes Percent Auto 32.8 % (18.3-44.2); Mean Corpuscular HGB Conc 30.7 g/dl (32-36); Mean Corpuscular Volume 81.7 fl (80-100); Mean Platelet Volume 10.7 fl (7.4-10.4); Monocytes Absolute Auto 0.7 K/mm3 (0.1-0.6); Monocytes Percent Auto 5.7 % (2.6-8.5); Neutrophils Absolute Auto 6.7 K/mm3 (1.3-6.7); Neutrophils Percent Auto 59.2 % (45.5-73.1); Platelet Count Result 321 k/mm3 (150-375); Red Blood Count 5.03 M/mm3 (4.2-5.4); Red Cell Distribution Width 15.4 % (11.5-14.5); White Blood Count 11.3 K/mm3 (4.5-10.0)
[2024-01-10 08:14] LABS: Alanine Aminotransferase 14 U/L (6-35); Albumin Level 4.5 g/dL (3.5-5.1); Alkaline Phosphatase 61 U/L (38-126); Anion Gap 9 mmol/L (4-12); Aspartate Amino Transferase 24 U/L (14-36); Bilirubin,Total 0.6 mg/dL (0.2-1.3); Blood Urea Nitrogen 12 mg/dL (7-17); Carbon Dioxide 25 mmol/L (22-30); Chloride 105 mmol/L (98-107); Estimated Glomerular Filt Rate > 60; Glucose 90 mg/dL (65-110); Potassium 4.3 mmol/L (3.4-5.0); Sodium 139 mmol/L (137-145)
[2024-01-10 09:09] LABS: Folic Acid 11.4 ng/mL (2.76->20)
[2024-01-13 02:34] LABS: Prolactin 66.8 ng/mL
[2024-01-14 11:03] LABS: Vitamin D 1,25 (OH)2 Total 30 pg/mL (18-72); Vitamin D2 1,25 (OH)2 <8 pg/mL; Vitamin D3 1,25 (OH)2 30 pg/mL
== END 2024-01-10 06:58 | disposition home or self-care (01) ==
LOC: ANHLAB 06:58
PROVIDERS: Visit Provider Psychiatry & Neurology Neurology
DX: G40.909 Epilepsy, unspecified, not intractable, without status epilepticus (principal); E55.9 Vitamin D deficiency, unspecified
CPT/HCPCS: 36415; 80053; 82607; 82652; 82746; 84146; 84443; 85025

== ENCOUNTER 2024-06-03 13:18 | Emergency (ER) | payer OTHER, SELFPAY ==
[2024-06-03 13:21] VITALS: BP 148/83; PULSE 135; RESP 20; O2SAT 100
--- NOTE | 2024-06-03 13:28 | ECG_ITS ---
Test Date: 2024-06-03 13:34:34 Measurements Intervals [place] Rate: 129 P: 37 MD: 132 QRS: 40 QRSD: 89 T: 17 QT: 300 QTc: 439 Interpretive Statements SINUS TACHYCARDIA BASELINE ARTIFACT- I, III, AVL, AVF, V5 ABNORMAL ECG Compared to ECG 11/12/2023 17:56:03 No significant changes Electronically Signed On 06-03-2024 13:38:22 CDT by Timmy Mary D.O.
[2024-06-03 13:50] LABS: Basophils Absolute Auto 0.1 K/mm3 (0.0-0.1); Basophils Percent Auto 0.5 % (0.2-1.2); Eosinophils Absolute Auto 0.1 K/mm3 (0-0.3); Eosinophils Percent Auto 0.8 % (0-4.4); Hematocrit 40.2 % (37.0-47.0); Hemoglobin 12.5 g/dL (12.0-15.0); Immature Granulocyte Absolute 0.07 K/mm3 (0.00-0.031); Immature Granulocyte Percent A 0.6 % (0-0.5); Mean Corpuscular HGB Conc 31.1 g/dl (32-36); Mean Corpuscular Hemoglobin 25.5 pg (26-34); Mean Platelet Volume 10.3 fl (7.4-10.4); Monocytes Absolute Auto 0.6 K/mm3 (0.1-0.6); Monocytes Percent Auto 4.9 % (2.6-8.5); Neutrophils Absolute Auto 8.2 K/mm3 (1.3-6.7); Neutrophils Percent Auto 65.2 % (45.5-73.1); Platelet Count Result 374 k/mm3 (150-375); Red Cell Distribution Width 15.5 % (11.5-14.5); White Blood Count 12.5 K/mm3 (4.5-10.0)
[2024-06-03 14:05] LABS: Alanine Aminotransferase 18 U/L (6-35); Albumin Level 4.6 g/dL (3.5-5.1); Alkaline Phosphatase 50 U/L (38-126); Anion Gap 15 mmol/L (4-12); Aspartate Amino Transferase 28 U/L (14-36); Bilirubin,Total 0.5 mg/dL (0.2-1.3); Blood Urea Nitrogen 13 mg/dL (7-17); Calcium 8.9 mg/dL (8.4-10.2); Carbon Dioxide 21 mmol/L (22-30); Chloride 104 mmol/L (98-107); Estimated Glomerular Filt Rate > 60; Glucose 103 mg/dL (65-110); Potassium 4.2 mmol/L (3.4-5.0); Sodium 140 mmol/L (137-145)
[2024-06-03] MEDS: DEXTROSE 5%/LACTATED RINGERS 1,000 ML 999 ML IV CONT (14:15)
--- NOTE | 2024-06-03 14:15 | ED.SEIZURE ---
HPI - Seizure General Chief Complaint: Seizure Stated Complaint: seizure Time Seen by Provider: 06/03/24 13:51 History of Present Illness HPI Narrative: 23-year-old female with a past medical history including epilepsy on Keppra 750 mg b.i.d.. She presents to the emergency department after witnessed syncopal event with shaking, eye rolling and jerking of the extremities consistent with a breakthrough seizure. This was witnessed by the brother who was present at bedside and providing collateral formation. Patient had a brief postictal period, seizure lasts approximately 4-5 minutes and aborted spontaneously. Patient is currently awake alert oriented at her baseline mentation. Denies any complaints, states she is complaint with her medications, no recent injuries, illnesses, hospital visits. Follows up with our local Neurology team and has not had any titration is to her medications. Last visit was 2 months ago. 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 Code status: Full code. Smoking status: Never smoker Alcohol intake: never Substance use: never Do You Feel Safe in your Home?: Yes Lack of Transportation: No Lack of Food: Never True Current Housing: I Have Housing Concerned About Future Housing: No Difficulty Paying Gas/Electric Bills: No Difficulty Paying for Meds: No Currently Unemployed: No Education: High School Diploma/GED Difficulty w/ Childcare or Family Care: No Spiritual care concerns: No Exam Narrative: GENERAL: [Well-appearing, well-nourished, and in no acute distress.] HEAD: [Normocephalic, atraumatic.] EYES: [PERRLA and EOMI.] ENT: Nares clear, no rhinorrhea or epistaxis. Mucous membranes moist. NECK: Supple. CHEST: [Clear to auscultation. No respiratory distress.] HEART: [Regular rate and rhythm]. No murmur heard. [Normal peripheral pulses.] ABDOMEN: [Soft, nondistended], [nontender], [No rigidity or guarding] EXTREMITIES: Normal range of motion. [No edema.] SKIN: Warm, dry, no rash. NEURO: [No focal deficits]. Alert and oriented [x3.] PSYCH: [Normal mood and affect.] Course Vital Signs Vital signs: Vital Signs Pulse Rate 135 H 06/03/24 13:21 Respiratory Rate 20 06/03/24 13:21 Blood Pressure 148/83 H 06/03/24 13:21 Pulse Oximetry 100 06/03/24 13:21 Oxygen Delivery Room Air 06/03/24 13:21 Temperature 37.2 C 06/03/24 14:59 Pulse Rate 96 06/03/24 15:38 Respiratory Rate 21 H 06/03/24 15:38 Blood Pressure 114/57 L 06/03/24 14:59 Pulse Oximetry 100 06/03/24 15:38 Oxygen Delivery Room Air 06/03/24 15:39 MDM - Seizure MDM Narrative Medical decision making narrative: 23-year-old female with a history of epilepsy, presents to the emergency department after a witnessed breakthrough seizure. She had a postictal period and procedure lasted several minutes. No injuries or trauma. She was otherwise in her normal state of health. No recent medication changes, illnesses or injury. Follows with Neurology regular. Last visit was 2 months ago. She takes Keppra 750 mg b.i.d.. Slightly tachycardic in triage but normal blood pressure, no tachypnea, fever or hypoxia. She has had a total of 3 seizures this year. No recent interventions, she has had MRI and EEG before. Suspicion presently is for breakthrough seizure versus triggering event such as likely disturbances or less likely infection. Patient has no complaints at this time and otherwise appears well. CBC, CMP, test ordered. She was given D5 LR and placed on monitor and re-evaluated frequently. Patient's workup was largely unremarkable. She has a persistent leukocytosis of 12.5 which is in line with her chronic levels previously without any identifiable source. Her neurologist is aware of this finding. No anemia. Normal platelet count. Electrolytes show no derangement. Mild anion gap elevated likely secondary to the seizure activity. Normal glucose and LFTs. Normal renal function. Urine test is negative. No indications for CT at this time. Patient was observed here in the emergency department with seizure precautions for numerous hours. She remained hemodynamically stable without any recurrent seizure activity. She was given a dose of Keppra here in the ED. I discussed the case with Dr. Galaviz her neurologist who recommended increasing her dose to 1000 mg b.i.d. and close outpatient follow-up. Patient was comfortable with this plan and stable for discharge on a new medication dose. Medical Records Attestation: I reviewed the patient's medical records. Lab Data Attestation: I reviewed the patient's lab results. 06/03/24 13:38 06/03/24 13:38 Labs: Lab Results 06/03/24 06/03/24 Range/Units 13:38 15:08 WBC 12.5 H (4.5-10.0) K/mm3 RBC 4.90 (4.2-5.4) M/mm3 Hgb 12.5 (12.0-15.0) g/dL Hct 40.2 (37.0-47.0) % MCV 82.0 (80-100) fl MCH 25.5 L (26-34) pg MCHC 31.1 L (32-36) g/dl RDW 15.5 H (11.5-14.5) % Plt Count 374 (150-375) k/mm3 MPV 10.3 (7.4-10.4) fl Immature Gran % (Auto) 0.6 H (0-0.5) % Neut % (Auto) 65.2 (45.5-73.1) % Lymph % (Auto) 28.0 (18.3-44.2) % [place] % (Auto) 4.9 (2.6-8.5) % Eos % (Auto) 0.8 (0-4.4) % Baso % (Auto) 0.5 (0.2-1.2) % Lymph # (Auto) 3.50 H (0.9-3.2) K/mm3 [place] # (Auto) 0.6 (0.1-0.6) K/mm3 Eos # (Auto) 0.1 (0-0.3) K/mm3 Baso # (Auto) 0.1 (0.0-0.1) K/mm3 Abs Immat Gran (auto) 0.07 H (0.00-0.031) K/mm3 Absolute Neuts (auto) 8.2 H (1.3-6.7) K/mm3 Absolute Nucleated RBC 0.000 (0.0-0.012) K/mm3 Nucleated RBC % 0.0 (0.0-0.2) % Sodium 140 (137-145) mmol/L Potassium 4.2 (3.4-5.0) mmol/L Chloride 104 (98-107) mmol/L Carbon Dioxide 21 L (22-30) mmol/L Anion Gap 15 H (4-12) mmol/L BUN 13 (7-17) mg/dL Creatinine 0.87 (0.7-1.0) mg/dL Estim Creat Clear Calc Not Reportable Estimated GFR > 60 (59 - ) Glucose 103 (65-110) mg/dL Calcium 8.9 (8.4-10.2) mg/dL Total Bilirubin 0.5 (0.2-1.3) mg/dL AST 28 (14-36) U/L ALT 18 (6-35) U/L Alkaline Phosphatase 50 (38-126) U/L Total Protein 8.0 (6.3-8.2) g/dL Albumin 4.6 (3.5-5.1) g/dL POC Urine HCG, Qual Negative (Negative) Discharge Plan Discharge Clinical Impression: Breakthrough seizure, Seizure disorder Patient Disposition: Home Condition: Stable Instructions: Antibiotic Form, Epilepsy (ED) Additional Instructions: We spoke to your neurologist who recommended increasing her dose to 1000 mg twice daily. Take this new dose starting today and follow up with them outpatient. Call their office tomorrow morning to schedule follow-up visit. Return with any new or worsening concerns. Patient Language: Ethiopian Prescriptions: New levetiracetam [Keppra] 1,000 mg tablet 1,000 mg PO BID 30 Days Qty: 60 0RF No Action levetiracetam 750 mg tablet 750 mg PO Q12HR Qty: 180 2RF Follow-up/Referrals: Gato Galaviz MD [Physician] - 1 Week (breakthrough seizure) UNKNOWN,DOCTOR [Primary Care Provider] - Time of Disposition: 16:35
[2024-06-03 14:33] VITALS: PULSE 121
[2024-06-03 14:59] VITALS: BP 114/57; PULSE 104; RESP 18; TEMP 37.2; O2SAT 100
[2024-06-03 15:09] LABS: BEDSIDEPREGUCG Negative (Negative)
[2024-06-03 15:38] VITALS: PULSE 96; RESP 21; O2SAT 100
--- OUTSIDE RECORDS SUMMARY | 2024-06-03 15:58 | XMS_ITS | Clinical Summary ---
Author Organization [facility] Care Team Providers Care Senior Care Manager Name Role Phone Unavailable Primary Care Provider Unavailabl e Social History Tobacco Use Types Packs/Day Years Used Date Smoking Tobacco: Never Assessed Comments Unknown Sex and Gender Information Value Date Recorded Sex Assigned at Not on file Legal Sex Unknown 10/30/2020 3:15 PM CDT Gender Identity Not on file Sexual Orientation Not on file Plan of Treatment Health Maintenance Due Date Last Done Comments Hepatitis C Virus (HCV) Screening 2002 TdaP Immunization 2002 Human Papillomavirus (HPV) Immunization (1 - 3-dose series) 2017 Meningococcal B Immunization (1 of 2 - Standard) 2018 Hepatitis B Immunization (1 of 3 - 19+ 3-dose series) 2021 Pap Smear 07/11/2023 Influenza Immunization (#1) 2023 SARS-COV-2 Immunization (3 - season) 2023 09/03/2020, 08/10/2020 Respiratory Syncytial Virus (RSV) Immunization (Adult) (1 - 1-dose 75+ series) 2077 Meningococcal Immunization (ACWY) Aged Out No longer eligible b ased on patient's age to complete this topic Pneumococcal Immunization Combined Aged Out No longer eligible b ased on patient's age to complete this topic Rotavirus Immunization Aged Out No lo nger eligible based on patient's age to complete this topic
--- OUTSIDE RECORDS SUMMARY | 2024-06-03 15:58 | XMS_ITS | Clinical Summary ---
[facility] Address [address] [place] [address] Care Team Providers Care Assorter Laundry Name Role Phone Unavailable Primary Care Provider Unavailabl e Allergies No known active allergies Medications levETIRAcetam (KEPPRA) 750 mg Tablet Take 1 Tablet by mouth 2 times daily. 01/10/2024 Active Active Problems No known active problems Encounters Date Type Department Care Team Description 05/28/2024 External Device Data [facility]CTION Provider, Abstract 05/01/2024 External Device Data [facility] Provider, Abstract 05/01/2024 External Device Data [facility] Provider, Abstract 04/20/2024 External Device Data [facility] Provider, Abstract 04/19/2024 External Device Data [facility] Provider, Abstract 04/16/2024 External Device Data [facility] Provider, Abstract 04/02/2024 External Device Data [facility] Provider, Abstract 03/26/2024 3:30 PM CHIP DRIER Office Visit [facility] - [address] [place] [address] Varun Burkett MD Leukocytosis, unspecified type (Primary Dx) 03/18/2024 Orders Only [facility] - [address] [facility] [place] [address] Varun Burkett MD 03/12/2024 External Device Data [facility]STRACTION Provider, Abstract 03/12/2024 Orders Only [facility] - [address] [place] [address] Varun Burkett MD 03/11/2024 Orders Only [facility] - [address] [place] [address] Varun Burkett MD 03/06/2024 External Device Data [facility] Provider, Abstract 03/05/2024 External Device Data [facility] Provider, Abstract 03/05/2024 External Device Data [facility]STRACTION Provider, Abstract from Last 3 Months Family History Medical History Relation Name Comments No Known Problems Brother No Known Problems Father No Known Problems Mother Relation Name Status Comments Brother Alive Father Alive Mother Alive Social History Tobacco Use Types Packs/Day Years Used Date Smoking Tobacco: Never Smokeless Tobacco: Never Tobacco Cessation:Counseling Given: Not Answered Alcohol Use Standard Drinks/Week Comments Never 0 (1 standard drink = 0.6 oz pur e alcohol) Comments Unknown Sex and Gender Information Value Date Recorded Sex Assigned at Not on file Legal Sex Female 3:27 PM CHIP DRIER Gender Identity Not on file Sexual Orientation Not on file Last Filed Vital Signs Vital Sign Reading Time Taken Comments Blood Pressure 118/77 03/26/2024 3:20 PM CHIP DRIER Pulse 96 03/26/2024 3:20 PM CHIP DRIER Temperature 36.6 C (97.9 F) 03/26/2024 3:20 PM CHIP DRIER Respiratory Rate 14 03/26/2024 3:20 PM CHIP DRIER Oxygen Saturation 98% 03/26/2024 3:20 PM CHIP DRIER Inhaled Oxygen Concentration - - Weight 97.5 kg (215 lb) 03/26/2024 3:20 PM CHIP DRIER Height 160 cm (5' 3 ) 02/27/2024 2:45 PM CHIP DRIER Body Mass Index 38.09 02/27/2024 2:45 PM CHIP DRIER Plan of Treatment Upcoming Encounters Date Type Department Care Team (Late st Contact Info) Description 07/25/2024 3:45 PM CDT Office Visit [facility] - [address] [place] [address] Varun Burkett MD [address] [facility] [address] [place] [address] Health Maintenance Due Date Last Done Comments CHLAMYDIA SCREENING (ANNUAL) 24 YEARS 2013 HPV VACCINES (1 - 3-dose series) 2017 DTAP/TDAP/TD VACCINES (1 - Tdap) 2021 HEPATITIS B VACCINES (1 of 3 - 19+ 3-dose series) 06/14 Preventative Visit-Managed Medicaid 2021 CERVICAL CANCER SCREENING 07/11/2023 HPV/Cotest (21-29) 07/11/2023 PAP SMEAR 07/11/2023 PAP SMEAR 07/11/2023 INFLUENZA VACCINE (#1) 2023 Procedures Procedure Name Priority Date/Time Associated Diagnosis Comments FLOW CYTOMETRY REPORT Routine 03/08/2024 11:37 AM CHIP DRIER CBC WITH AUTODIFFERENTIAL Routine 2024 2:20 PM CHIP DRIER COMPREHENSIVE METABOLIC PANEL Routine 03/07/2024 12:04 PM CHIP DRIER from Last 3 Months Results * FLOW CYTOMETRY REPORT (03/08/2024 11:37 AM CHIP DRIER) us Varun Burkett MD PATHOLOGY/CYTOLOGY ORDERABLES F inal Result * CBC WITH AUTODIFFERENTIAL (03/07/2024 2:20 PM CHIP DRIER) Blood us Varun Burkett MD HEMATOLOGY ORDERABLES Final Res ult * COMPREHENSIVE METABOLIC PANEL (03/07/2024 12:04 PM CHIP DRIER) Blood us Varun Burkett MD CHEMISTRY ORDERABLES Final Resu lt from Last 3 Months Insurance [facility] MEDICAID
--- OUTSIDE RECORDS SUMMARY | 2024-06-03 15:58 | XMS_ITS | Clinical Summary ---
Author Organization [address] Address [address] [place] [id number] Care Team Providers Care Dry Pan Feeder Name Role Phone Ulises Cheng MD Primary Care Provider [phone] Allergies No known active allergies Medications levETIRAcetam (KEPPRA) 750 mg tablet Take 1 tablet (750 mg total) by mouth 2 (two) times a day 01/10/2024 Active Active Problems Problem Noted Date Diagnosed Date Hyperprolactinemia 03/28/2024 Encounters Date Type Department Care Team Description 03/29/2024 Telephone [facility] Specialists of [address] [address] Quinn Slater MD 03/28/2024 3:00 PM INSPECTOR HANDBAG FRAMES Lab [address] [address] Hyperprolactinemia 03/28/2024 2:30 PM INSPECTOR HANDBAG FRAMES Office Visit [facility] Specialists of [address] [address] Quinn Slater MD Hyperprolactinemia (Primary Dx) from Last 3 Months Medical History Medical History Date Comments Epilepsy (HCC) Family History Medical History Relation Name Comments Diabetes Maternal Grandmother Relation Name Status Comments Maternal Grandmother Social History Tobacco Use Types Packs/Day Years Used Date Smoking Tobacco: Never Smokeless Tobacco: Never Tobacco Cessation:Counseling Given: Not Answered Comments Unknown Sex and Gender Information Value Date Recorded Sex Assigned at Not on file Legal Sex Female 11:56 AM INSPECTOR HANDBAG FRAMES Gender Identity Not on file Sexual Orientation Not on file Obstetrics History Last Filed Vital Signs Vital Sign Reading Time Taken Comments Blood Pressure 118/70 03/28/2024 2:32 PM INSPECTOR HANDBAG FRAMES Pulse 105 03/28/2024 2:32 PM INSPECTOR HANDBAG FRAMES Temperature - - Respiratory Rate 15 03/28/2024 2:32 PM INSPECTOR HANDBAG FRAMES Oxygen Saturation - - Inhaled Oxygen Concentration - - Weight 98 kg (216 lb) 03/28/2024 2:32 PM INSPECTOR HANDBAG FRAMES Height 160 cm (5' 3 ) 03/28/2024 2:32 PM INSPECTOR HANDBAG FRAMES Body Mass Index 38.26 03/28/2024 2:32 PM INSPECTOR HANDBAG FRAMES Plan of Treatment Health Maintenance Due Date Last Done Comments Cervical Cancer Screening 2002 Depression Screening 2002 Hepatitis C Screening 2002 Varicella Vaccines (1 of 2 - 13+ 2-dose series) 07/11/2015 HPV Vaccines (1 - 3-dose series) 2017 Meningococcal B Vaccine (1 o f 2 - Standard) 2018 Hepatitis B Screening 2020 Regular Well Visit/Exam 18-64 2020 DTaP/Tdap/Td Vaccine (2 - Td or Tdap) 07/18/2023 07/17/2013 Covid-19 Vaccine (3 - 2023-2 5 season) 2023 09/03/2020, 08/10/2020 Influenza Vaccine (#1) 2023 11/23/2020 Meningococcal Vaccine Aged Out No michelle lorene eligible based on patient's age to complete this topic Pneumococcal vaccine <65 Aged Out No longer eligible based on patient's age to complete this topic Procedures Procedure Name Priority Date/Time Associated Diagnosis Comments PROLACTIN Routine 03/28/2024 3:12 PM INSPECTOR HANDBAG FRAMES Hyperprolactinemia HCG, BLOOD, QUANTITATIVE Routine 03/28/2024 3:12 PM INSPECTOR HANDBAG FRAMES Hyperprolactinemia THYROID FUNCTION CASCADE Routine 03/28/2024 3:12 PM INSPECTOR HANDBAG FRAMES Hyperprolactinemia from Last 3 Months Results * Thyroid Function [place] (03/28/2024 3:12 PM INSPECTOR HANDBAG FRAMES) TSH 1.24 0.30 - 4.20 mcIUnit/mL Blood 03/28/2024 3:12 PM INSPECTOR HANDBAG FRAMES 03/28/2024 7:20 PM INSPECTOR HANDBAG FRAMES us Quinn Crowe MD LAB BLOOD ORDERABLE S Final Result Performing Organization Address City/[facility] Co de Phone Number KRISTINE WE[facility] [address] [place] [address] * (ABNORMAL) Prolactin (03/28/2024 3:12 PM INSPECTOR HANDBAG FRAMES) Prolactin 53.5(H) 4.8 - 23.3 ng/mL Blood 03/28/2024 3:12 PM INSPECTOR HANDBAG FRAMES 03/28/2024 7:20 PM INSPECTOR HANDBAG FRAMES Quinn Crowe MD LAB BLOOD ORDERABLE S Final Result Performing Organization Address [facility] Co de Phone Number KRISTINE WEST [address] [place] [address] * hCG, blood, quantitative (03/28/2024 3:12 PM INSPECTOR HANDBAG FRAMES) hCG, quant <0.1 0.0 - 5.0 IUnits/L Comment: Interpretive Data Male: < 5 IU/L Non- premenopausal Female: <5 IU/L The Padma hCG Beta Quant assay procedure was used. Results from different manufacturers or methods may not be comparable. Serial testing should be performed using the same method. Interpretive Data was last revised on 2023 Blood 03/28/2024 3:12 PM INSPECTOR HANDBAG FRAMES 03/28/2024 7:20 PM INSPECTOR HANDBAG FRAMES us Quinn Crowe MD LAB BLOOD ORDERABLE S Final Result Performing Organization Address City/[facility] [place] Number [place] [address] [address] [place] [address] from Last [address] [place] [address] [address] Care Teams Dry Pan Feeder Relationship Specialty Start Date End Date Ulises Cheng MD [address] [place] [id number] PCP - General Emergency Medicine 01/23/24
--- OUTSIDE RECORDS SUMMARY | 2024-06-03 15:58 | XMS_ITS | Referral Summary ---
Author Organization [address] Address [address] [place] [address] Care Team Providers Care Clothing Trades Workers Name Role Phone Ulises Cheng MD Primary Care Provider [phone] Encounters Date Type Department Care Team Description 03/29/2024 Telephone [facility] Specialists of [address] [address] Quinn Slater MD 03/28/2024 3:00 PM FAMILY DEVELOPMENT SPECIALIST Lab [address] [address] Hyperprolactinemia 03/28/2024 2:30 PM FAMILY DEVELOPMENT SPECIALIST Office Visit [facility] Specialists of [address] [address] Quinn Slater MD Hyperprolactinemia (Primary Dx) from Last 3 Months Allergies No known active allergies Medications levETIRAcetam (KEPPRA) 750 mg tablet Take 1 tablet (750 mg total) by mouth 2 (two) times a day 01/10/2024 Active Active Problems Problem Noted Date Diagnosed Date Hyperprolactinemia 03/28/2024 Social History Tobacco Use Types Packs/Day Years Used Date Smoking Tobacco: Never Smokeless Tobacco: Never Tobacco Cessation:Counseling Given: Not Answered Comments Unknown Sex and Gender Information Value Date Recorded Sex Assigned at Not on file Legal Sex Female 11:56 AM FAMILY DEVELOPMENT SPECIALIST Gender Identity Not on file Sexual Orientation Not on file Last Filed Vital Signs Vital Sign Reading Time Taken Comments Blood Pressure 118/70 03/28/2024 2:32 PM FAMILY DEVELOPMENT SPECIALIST Pulse 105 03/28/2024 2:32 PM FAMILY DEVELOPMENT SPECIALIST Temperature - - Respiratory Rate 15 03/28/2024 2:32 PM FAMILY DEVELOPMENT SPECIALIST Oxygen Saturation - - Inhaled Oxygen Concentration - - Weight 98 kg (216 lb) 03/28/2024 2:32 PM FAMILY DEVELOPMENT SPECIALIST Height 160 cm (5' 3 ) 03/28/2024 2:32 PM FAMILY DEVELOPMENT SPECIALIST Body Mass Index 38.26 03/28/2024 2:32 PM FAMILY DEVELOPMENT SPECIALIST Plan of Treatment Not on file Procedures Procedure Name Priority Date/Time Associated Diagnosis Comments PROLACTIN Routine 03/28/2024 3:12 PM FAMILY DEVELOPMENT SPECIALIST Hyperprolactinemia HCG, BLOOD, QUANTITATIVE Routine 03/28/2024 3:12 PM FAMILY DEVELOPMENT SPECIALIST Hyperprolactinemia THYROID FUNCTION CASCADE Routine 03/28/2024 3:12 PM FAMILY DEVELOPMENT SPECIALIST Hyperprolactinemia from Last 3 Months Results * Thyroid Function [place] (03/28/2024 3:12 PM FAMILY DEVELOPMENT SPECIALIST) TSH 1.24 0.30 - 4.20 mcIUnit/mL Blood 03/28/2024 3:12 PM FAMILY DEVELOPMENT SPECIALIST 03/28/2024 7:20 PM FAMILY DEVELOPMENT SPECIALIST us Quinn Crowe MD LAB BLOOD ORDERABLE S Final Result Performing Organization Address City/[facility]/ZIP Co de Phone Number KRISTINE WEST [address] [place] [address] * (ABNORMAL) Prolactin (03/28/2024 3:12 PM FAMILY DEVELOPMENT SPECIALIST) Prolactin 53.5(H) 4.8 - 23.3 ng/mL Blood 03/28/2024 3:12 PM FAMILY DEVELOPMENT SPECIALIST 03/28/2024 7:20 PM FAMILY DEVELOPMENT SPECIALIST us Quinn Crowe MD LAB BLOOD [place] [address] [address] Department of [employer] [place], [place] [id number] * hCG, blood, quantitative (03/28/2024 3:12 PM FAMILY DEVELOPMENT SPECIALIST) hCG, quant <0.1 0.0 - 5.0 IUnits/L Comment: Interpretive Data Male: < 5 IU/L Non- premenopausal Female: <5 IU/L The Padma hCG Beta Quant assay procedure was used. Results from different manufacturers or methods may not be comparable. Serial testing should be performed using the same method. Interpretive Data was last revised on 2023 Blood 03/28/2024 3:12 PM FAMILY DEVELOPMENT SPECIALIST 03/28/2024 7:20 PM FAMILY DEVELOPMENT SPECIALIST us Quinn Crowe MD LAB BLOOD ORDERABLE S Final Result KRISTINE [address] [place] [address] from Last 3 Months Insurance Care Teams Clothing Trades Workers Relationship Specialty Start Date End Date Ulises Cheng MD [address] [address] PCP - General Emergency Medicine 01/23/24
--- OUTSIDE RECORDS SUMMARY | 2024-06-03 15:58 | XMS_ITS | Clinical Summary ---
Author Organization [facility] Address [address] [place] [address] Care Team Providers Care Nurse Staff Industrial Name Role Phone Unavailable Primary Care Provider Unavailabl e Source Comments [facility],non-owned Affiliates and Associated Physician Practices is amultiple site organization consisting of ambulatory clinics and hospital sitesin [place], [place], [place] and [place]. This disclosure is being madepursuant to the Care Everywhere program and may not contain all information available regarding this patient. Last updated 17.[facility] [employer] Allergies No known active allergies Family History Medical History Relation Name Comments Diabetes - Type 2 Maternal Grandmother Relation Name Status Comments Maternal Grandmother Social History Tobacco Use Types Packs/Day Years Used Date Smoking Tobacco: Never Smokeless Tobacco: Never Comments Unknown Sex and Gender Information Value Date Recorded Sex Assigned at Not on file Legal Sex Female 4:45 PM CDT Gender Identity Not on file Sexual Orientation Not on file Last Filed Vital Signs Vital Sign Reading Time Taken Comments Blood Pressure 110/60 11/16/2018 4:27 PM CDT Pulse 74 11/16/2018 4:27 PM CDT Temperature 36.7 C (98 F) 11/16/2018 4:27 PM CDT Respiratory Rate 20 11/16/2018 4:27 PM CDT Oxygen Saturation 97% 11/16/2018 4:27 PM CDT Inhaled Oxygen Concentration - - Weight 66.7 kg (147 lb) 11/16/2018 4:27 PM CDT Height 158.8 cm (5' 2.5 ) 11/16/2018 4:27 PM CDT Body Mass Index 26.46 11/16/2018 4:27 PM CDT Plan of Treatment Health Maintenance Due Date Last Done Comments PAP SMEAR 2002 HIV SCREENING 2017 HPV VACCINE (1 - 3-dose series) 2017 CHLAMYDIA/GONORRHEA SCREENING 2018 MENINGOCOCCAL (Group B) VACC INE SHARED DECISION-MAKING (1 of 2 - Standard) 2018 HEPATITIS C SCREENING 07/05/2020 DTAP/TDAP/TD VACCINES (1 - Tdap) 2021 HEPATITIS B VACCINE (1 of 3 - 19+ 3-dose series) 2021 COVID-19 VACCINE (1 - 2023-2 5 season) 2023 DEPRESSION SCREENING 02/14/2024 INFLUENZA VACCINE (Season Ended) 2024 ZOSTER VACCINE (1 of 2) 2052 HIB VACCINE Aged Out No longer eligi ble based on patient's age to complete this topic MENINGOCOCCAL GROUPS A/C/Y/W VACCINE Aged Out No longer eligible b ased on patient's age to complete this topic PNEUMOCOCCAL VACCINE Aged Out No long er eligible based on patient's age to complete this topic
--- OUTSIDE RECORDS SUMMARY | 2024-06-03 15:58 | XMS_ITS | Continuity of Care Document ---
Author Organization [facility] Address [address] [place] [address] Phone Care Team Providers Care Thread Milling Machine Set Up Operator Name Role Phone Evelyn Mahoney Unavailable Unavailable Procedures Procedure Date Resin composite, 1 surf posterior Dental bitewings four films Periapical first film Periapical ea add Periapical ea add Periodic oral evaluation Dental prophylaxis child (12 & UNDER) Ma Topical Application Of Flor[place] 15 Dental prophylaxis child (12 & UNDER) Se Topical Application Of [place] 14 Dental sealant per tooth Dental sealant per tooth Dental sealant per tooth Dental sealant per tooth Dental sealant per tooth Dental sealant per tooth Dental sealant per tooth Dental sealant per tooth Dental sealant per tooth Dental sealant per tooth Dental sealant per tooth Dental prophylaxis child (12 & UNDER) Periapical first film Periapical ea add Periapical ea add Dental bitewings four films Periodic oral evaluation Dental prophylaxis child (12 & UNDER) No Topical Application Of [place] 13 Dental sealant per tooth Dental prophylaxis child (12 & UNDER) Toro Topical Application Of [place] 13 Dental sealant per tooth Dental sealant per tooth Dental bitewings four films Periapical first film Periapical ea add Periapical ea add Periodic oral evaluation Dental sealant per tooth Dental sealant per tooth Comprehensve oral evaluation INITIAL Apr Periapical ea add Dental bitewing single film Dental bitewings four films Dental prophylaxis child (12 & UNDER) Toro r Topical fluor w/o prophy chi Advance Directives Directive Yes / No Effective Date File Name No Information Encounters Encounter Description Practice Location Reason(s) For Visit Diagnoses Date Provider Providers Copied on Encounter [facility], [address] [place] [address], [facility], tel:[phone] [facility] Dental examination Apr-2 5- 5 Denzel Rivas. [address] [place], [address], [place]. tel:[phone] [facility], [address] [place] [address], [address], [place] tel:[phone] [facility] Dental examination Apr-1 2- 5 PIERRE Harmon. . [facility], [address] [place] [address], [address], [place] tel:[phone] [facility] Dental examination Sep-0 9 4 PIERRE Harmon. . [facility], [address] [place] [address], [address], [place] tel:[phone] [facility] Dental examination Apr-1 - 4 PIERRE Harmon. . [facility], [address] [place] [address], [address], [place] tel:[phone] [facility] Dental examination Feb-2 4 PIERRE Harmon. . [facility], [address] [place] [address], [address], [place] tel:[phone] [facility] Dental examination 2-201 3 PIERRE Harmon. . [facility], [address] [place] [address], [facility], tel:[phone] [facility] Dental examination 2 3 Andres Ribeiro. [address] [place] [address], [facility]. tel:[phone] [facility], [address] [place] [address], [facility], [place] tel:[phone] [facility] Dental examination 0 8 3 PIERRE Harmon. . [facility], [address] [place] [address], [facility], [place] tel:[phone] [facility] Dental examination May-0 1-201 3 No Information [facility], [address] [place] [address], [facility], [place] tel:[phone] [facility] Dental examination Apr-0 5201 3 No Information [facility], [address] [place] [address], [facility], [place] tel:[phone] [facility] No Information Aug-3 0-201 2 PIERRE Harmon. . [facility], [address] [place] [address], [facility], [place] tel:[phone] [facility] No Information Apr-0 9-201 2 PIERRE Harmon. . Family History Family Member Type Diagnosis Age At Onset No Information Payers Payer name Insurance type Covered alliance party ID Ryan garcia(s) [facility] [id number] Social History Type Description Quantity Date Captured Comments Sex Female Smoking Status No Information Chief Complaint And Reason For Visit No Information Reason For Referral Reason For Referral No Information History Of Present Illness Encounter Date Complaint History Of Prese nt Illness No Information Functional Status Date Functional Assessmen t No Information Instructions Date Instruction Additional Infor mation No Information Assessments Type Assessment Date No Information Patient Care Teams Name Effective Dates (start - stop) Status Members No Information
[2024-06-03 16:41] VITALS: BP 124/75; PULSE 98; RESP 20; TEMP 36.6; O2SAT 99
[2024-06-03] MEDS: levETIRAcetam 500 MG TABLET 1000 MG PO (16:43)
== END 2024-06-03 16:46 | disposition home or self-care (01) ==
PROVIDERS: Emergency Provider Student in an Organized Health Care Education/Training Program
DX: G40.909 Epilepsy, unspecified, not intractable, without status epilepticus (principal)
CPT/HCPCS: 36415; 80053; 81025; 85025; 93005; 99284; A9270; J7121

== ENCOUNTER 2024-06-25 17:26 | Outpatient (CLI) | payer OTHER, SELFPAY ==
--- OUTSIDE RECORDS SUMMARY | 2024-06-25 17:30 | XMS_ITS | Clinical Summary ---
Author Organization [facility] Address [address] [place] [address] Care Team Providers Care Turbine Assembler Name Role Phone Unavailable Primary Care Provider Unavailabl e Source Comments [facility],non-owned Affiliates and Associated Physician Practices is amultiple site organization consisting of ambulatory clinics and hospital sitesin [place], [place], [place] and [place]. This disclosure is being madepursuant to the Care Everywhere program and may not contain all information available regarding this patient. Last updated 17.[facility] [employer] Allergies No known active allergies Family History [...] Health Maintenance Due Date Last Done Comments HIV SCREENING 2017 HPV VACCINE (1 - [...]
--- OUTSIDE RECORDS SUMMARY | 2024-06-25 17:30 | XMS_ITS | Clinical Summary ---
Author Organization [address] Address [address] [place] [address] Care Team Providers Care Foster Care Case Manager Name Role Phone Ulises Cheng MD Primary Care Provider [phone] Allergies No known active allergies Medications levETIRAcetam (KEPPRA) 750 mg tablet Take 1 tablet (750 mg total) by mouth 2 (two) times a day 01/10/2024 Active Active Problems Problem Noted Date Diagnosed Date Hyperprolactinemia 03/28/2024 Encounters Date Type Department Care Team Description 03/29/2024 Telephone [facility] Specialists of [address] [address] Quinn Slater MD 03/28/2024 3:00 PM PATIENT CARE MANAGER Lab [address] [address] Hyperprolactinemia 03/28/2024 2:30 PM PATIENT CARE MANAGER Office Visit [facility] Specialists of [address] [address] Quinn Slater MD Hyperprolactinemia (Primary [...] on file Legal Sex Female 11:56 AM PATIENT CARE MANAGER Gender Identity Not on file Sexual Orientation Not on file Obstetrics History Last Filed Vital Signs Vital Sign Reading Time Taken Comments Blood Pressure 118/70 03/28/2024 2:32 PM PATIENT CARE MANAGER Pulse 105 03/28/2024 2:32 PM PATIENT CARE MANAGER Temperature - - Respiratory Rate 15 03/28/2024 2:32 PM PATIENT CARE MANAGER Oxygen Saturation - - Inhaled Oxygen Concentration - - Weight 98 kg (216 lb) 03/28/2024 2:32 PM PATIENT CARE MANAGER Height 160 cm (5' 3 ) 03/28/2024 2:32 PM PATIENT CARE MANAGER Body Mass Index 38.26 03/28/2024 2:32 PM PATIENT CARE MANAGER Plan of Treatment Health Maintenance Due Date [...] Diagnosis Comments PROLACTIN Routine 03/28/2024 3:12 PM PATIENT CARE MANAGER Hyperprolactinemia HCG, BLOOD, QUANTITATIVE Routine 03/28/2024 3:12 PM PATIENT CARE MANAGER Hyperprolactinemia THYROID FUNCTION CASCADE Routine 03/28/2024 3:12 PM PATIENT CARE MANAGER Hyperprolactinemia from Last 3 Months Results * Thyroid Function [place] (03/28/2024 3:12 PM PATIENT CARE MANAGER) TSH 1.24 0.30 - 4.20 mcIUnit/mL Blood 03/28/2024 3:12 PM PATIENT CARE MANAGER 03/28/2024 7:20 PM PATIENT CARE MANAGER us Quinn Crowe MD LAB BLOOD ORDERABLE S Final Result Performing Organization Address City/[facility] Co de Phone Number K[facility]STINE WE[facility] [address] [place] [address] * (ABNORMAL) Prolactin (03/28/2024 3:12 PM PATIENT CARE MANAGER) Prolactin 53.5(H) 4.8 - 23.3 ng/mL Blood 03/28/2024 3:12 PM PATIENT CARE MANAGER 03/28/2024 7:20 PM PATIENT CARE MANAGER Quinn Crowe MD LAB BLOOD ORDERABLE S Final Result Performing Organization Address [facility] Co de Phone Number KRISTINE WEST [address] [address] [place] [address] * hCG, blood, quantitative (03/28/2024 3:12 PM PATIENT CARE MANAGER) hCG, quant <0.1 0.0 - 5.0 IUnits/L Comment: Interpretive Data Male: < 5 IU/L Non- premenopausal Female: <5 IU/L The Padma hCG Beta Quant assay procedure was used. Results from different manufacturers or methods may not be comparable. Serial testing should be performed using the same method. Interpretive Data was last revised on 2023 Blood 03/28/2024 3:12 PM PATIENT CARE MANAGER 03/28/2024 7:20 PM PATIENT CARE MANAGER us Quinn Crowe MD LAB BLOOD ORDERABLE S Final Result Performing Organization Address City/[facility] [place] Number [place] [address] [address] [place] [address] from Last [address] [place] [address] [place] [address] Care Teams Foster Care Case Manager Relationship Specialty Start Date End Date Ulises Cheng MD [address] [place] [id number] PCP - General Emergency Medicine 01/23/24
--- OUTSIDE RECORDS SUMMARY | 2024-06-25 17:30 | XMS_ITS | Continuity of Care Document ---
Author Organization [facility] Address [address] [place] [address] Phone Care Team Providers Care Latex Foam Worker Name Role Phone Evelyn Mahoney Unavailable Unavailable [...] Diagnoses Date Provider Providers Copied on Encounter [facility], [address] [place] [address], [facility], tel:[phone] [facility] Denta Dental examination Apr-2 5- 5 Denzel Rivas. [address] [place], [address], [place]. tel:[phone] [facility], [address] [place] [address], [address], [place] tel:[phone] [facility] Denta Dental examination Apr-1 2- 5 PIERRE Harmon. . [facility], [address] [place] [address], [address], [place] tel:[phone] [facility] Denta Dental examination Sep-0 9 4 PIERRE Harmon. . [facility], [address] [place] [address], [address], [place] tel:[phone] [facility] Denta Dental examination Apr-1 - 4 PIERRE Harmon. . [facility], [address] [place] [address], [address], [place] tel:[phone] [facility] Denta Dental examination Feb-2 4 PIERRE Harmon. . [facility], [address] [place] [address], [address], [place] tel:[phone] [facility] Denta Dental examination 2-201 3 PIERRE Harmon. . [facility], [address] [place] [address], [facility], tel:[phone] [facility] Denta Dental examination 2 3 Andres Ribeiro. [address] [place] [address], [facility]. tel:[phone] [facility], [address] [place] [address], [facility], [place] tel:[phone] [facility] Denta Dental examination 0 8 3 PIERRE Harmon. . [facility], [address] [place] [address], [facility], [place] tel:[phone] [facility] Denta Dental examination May-0 1-201 3 No Information [facility], [address] [place] [address], [facility], [place] tel:[phone] [facility] Denta Dental examination Apr-0 5201 3 No Information [facility], [address] [place] [address], [facility], [place] tel:[phone] [facility] Denta No Information Aug-3 0-201 2 PIERRE Harmon. . [facility], [address] [place] [address], [facility], [place] tel:[phone] [facility] Denta No Information Apr-0 9-201 2 PIERRE Harmon. . Family History Family Member Type Diagnosis Age At Onset No Information Payers Payer name Insurance type Covered alliance party ID Ryan garcia(s) Bang [facility] [id number] Social History Type Description Quantity Date Captured [...]
--- OUTSIDE RECORDS SUMMARY | 2024-06-25 17:30 | XMS_ITS | Clinical Summary ---
Author Organization [facility] Care Team Providers Care Training Specialist Name Role Phone Unavailable Primary Care Provider [...] 07/11/2023 Influenza Immunization (#1) 2023 SARS-COV-2 Immunization ( - season) 2023 09/03/2020, 08/10/2020 Respiratory Syncytial [...]
--- OUTSIDE RECORDS SUMMARY | 2024-06-25 17:30 | XMS_ITS | Referral Summary ---
Author Organization [address] Address [address] [place] [address] Care Team Providers Care Textile Colorist Formulator Name Role Phone Ulises Cheng MD Primary Care Provider [phone] Encounters Date Type Department Care Team Description 03/29/2024 Telephone [facility] [address] [address] Quinn Slater MD 03/28/2024 3:00 PM CYCLE TOURING GUIDE Lab [address] [address] Hyperprolactinemia 03/28/2024 2:30 PM CYCLE TOURING GUIDE Office Visit [facility] [address] [address] Quinn Slater MD Hyperprolactinemia (Primary [...] on file Legal Sex Female 11:56 AM CYCLE TOURING GUIDE Gender Identity Not on file Sexual Orientation Not on file Last Filed Vital Signs Vital Sign Reading Time Taken Comments Blood Pressure 118/70 03/28/2024 2:32 PM CYCLE TOURING GUIDE Pulse 105 03/28/2024 2:32 PM CYCLE TOURING GUIDE Temperature - - Respiratory Rate 15 03/28/2024 2:32 PM CYCLE TOURING GUIDE Oxygen Saturation - - Inhaled Oxygen Concentration - - Weight 98 kg (216 lb) 03/28/2024 2:32 PM CYCLE TOURING GUIDE Height 160 cm (5' 3 ) 03/28/2024 2:32 PM CYCLE TOURING GUIDE Body Mass Index 38.26 03/28/2024 2:32 PM CYCLE TOURING GUIDE Plan of Treatment Not on file Procedures Procedure Name Priority Date/Time Associated Diagnosis Comments PROLACTIN Routine 03/28/2024 3:12 PM CYCLE TOURING GUIDE Hyperprolactinemia HCG, BLOOD, QUANTITATIVE Routine 03/28/2024 3:12 PM CYCLE TOURING GUIDE Hyperprolactinemia THYROID FUNCTION CASCADE Routine 03/28/2024 3:12 PM CYCLE TOURING GUIDE Hyperprolactinemia from Last 3 Months Results * Thyroid Function [place] (03/28/2024 3:12 PM CYCLE TOURING GUIDE) TSH 1.24 0.30 - 4.20 mcIUnit/mL Blood 03/28/2024 3:12 PM CYCLE TOURING GUIDE 03/28/2024 7:20 PM CYCLE TOURING GUIDE us Quinn Crowe MD LAB BLOOD ORDERABLE S Final Result Performing Organization Address City/[facility]/ZIP Co de Phone Number [place] [address] [address] [employer] [place] [address] * (ABNORMAL) Prolactin (03/28/2024 3:12 PM CYCLE TOURING GUIDE) Prolactin 53.5(H) 4.8 - 23.3 ng/mL Blood 03/28/2024 3:12 PM CYCLE TOURING GUIDE 03/28/2024 7:20 PM CYCLE TOURING GUIDE us Quinn Crowe MD LAB [place]LOOD [place] [address] [address] Department of [employer] [place], [place] [id number] * hCG, blood, quantitative (03/28/2024 3:12 PM CYCLE TOURING GUIDE) hCG, quant <0.1 0.0 - 5.0 IUnits/L Comment: Interpretive Data Male: < 5 IU/L Non- premenopausal Female: <5 IU/L The Padma hCG Beta Quant assay procedure was used. Results from different manufacturers or methods may not be comparable. Serial testing should be performed using the same method. Interpretive Data was last revised on 2023 Blood 03/28/2024 3:12 PM CYCLE TOURING GUIDE 03/28/2024 7:20 PM CYCLE TOURING GUIDE us Quinn Crowe MD LAB BLOOD ORDERABLE S Final Result KRISTINE [address] [address] Department [place] [address] from Last 3 Months Insurance Care Teams Textile Colorist Formulator Relationship Specialty Start Date End Date Ulises Cheng MD [address] [address] PCP - General Emergency Medicine 01/23/24
--- OUTSIDE RECORDS SUMMARY | 2024-06-25 17:30 | XMS_ITS | Clinical Summary ---
Author Organization [facility] Address [address] [address] Care Team Providers Care Director Correctional Agency Name Role Phone Unavailable Primary Care Provider [...] on file Legal Sex Female 3:27 PM CANNON FIRE DIRECTION SPECIALIST Gender Identity Not on file Sexual Orientation Not on file Last Filed Vital Signs Vital Sign Reading Time Taken Comments Blood Pressure 118/77 03/26/2024 3:20 PM CANNON FIRE DIRECTION SPECIALIST Pulse 96 03/26/2024 3:20 PM CANNON FIRE DIRECTION SPECIALIST Temperature 36.6 C (97.9 F) 03/26/2024 3:20 PM CANNON FIRE DIRECTION SPECIALIST Respiratory Rate 14 03/26/2024 3:20 PM CANNON FIRE DIRECTION SPECIALIST Oxygen Saturation 98% 03/26/2024 3:20 PM CANNON FIRE DIRECTION SPECIALIST Inhaled Oxygen Concentration - - Weight 97.5 kg (215 lb) 03/26/2024 3:20 PM CANNON FIRE DIRECTION SPECIALIST Height 160 cm (5' 3 ) 02/27/2024 2:45 PM CANNON FIRE DIRECTION SPECIALIST Body Mass Index 38.09 02/27/2024 2:45 PM CANNON FIRE DIRECTION SPECIALIST Plan of Treatment Upcoming Encounters Date Type Department Care Team (Late st Contact Info) Description 07/25/2024 3:45 PM CDT Office Visit [facility] Oncology and Hematology - [place] [address] [facility] [address] [place] [address] Varun Burkett MD [address] [facility] [address] [place] [address] Health Maintenance Due Date Last Done Comments CHLAMYDIA SCREENING (ANNUAL) 11-24 YEARS 2013 HPV VACCINES (1 - 3-dose series) 2017 DTAP/TDAP/TD VACCINES (1 - Tdap) 2021 HEPATITIS B VACCINES (1 of 3 - 19+ 3-dose series) 06/14 CERVICAL CANCER SCREENING 07/11/2023 HPV/Cotest (21-29) 07/11/2023 PAP SMEAR 07/11/2023 INFLUENZA VACCINE (#1) 2023 Insurance [facility] MEDICAID
[2024-06-27 09:58] LABS: Levetiracetam Keppra 18.2 mcg/mL (6.0-46.0)
== END 2024-06-25 17:27 | disposition home or self-care (01) ==
LOC: ANHLAB 17:27
PROVIDERS: Visit Provider Psychiatry & Neurology Neurology
DX: G40.219 Localization-related (focal) (partial) symptomatic epilepsy and epileptic syndromes with complex partial seizures, intractable, without status epilepticus (principal)
CPT/HCPCS: 36415; 80177

== ENCOUNTER 2024-07-25 15:23 | Outpatient (CLI) | payer OTHER, SELFPAY ==
[2024-07-25 15:38] LABS: Basophils Absolute Auto 0.1 K/mm3 (0.0-0.1); Basophils Percent Auto 0.5 % (0.2-1.2); Eosinophils Absolute Auto 0.1 K/mm3 (0-0.3); Eosinophils Percent Auto 0.8 % (0-4.4); Hematocrit 38.4 % (37.0-47.0); Hemoglobin 12.1 g/dL (12.0-15.0); Immature Granulocyte Absolute 0.06 K/mm3 (0.00-0.031); Immature Granulocyte Percent A 0.4 % (0-0.5); Lymphocytes Absolute Auto 4.48 K/mm3 (0.9-3.2); Lymphocytes Percent Auto 31.1 % (18.3-44.2); Mean Corpuscular HGB Conc 31.5 g/dl (32-36); Mean Corpuscular Hemoglobin 25.9 pg (26-34); Mean Corpuscular Volume 82.1 fl (80-100); Monocytes Absolute Auto 0.9 K/mm3 (0.1-0.6); Monocytes Percent Auto 5.9 % (2.6-8.5); Neutrophils Absolute Auto 8.8 K/mm3 (1.3-6.7); Neutrophils Percent Auto 61.3 % (45.5-73.1); Platelet Count Result 393 k/mm3 (150-375); Red Blood Count 4.68 M/mm3 (4.2-5.4); Red Cell Distribution Width 14.9 % (11.5-14.5); White Blood Count 14.4 K/mm3 (4.5-10.0)
--- OUTSIDE RECORDS SUMMARY | 2024-07-25 15:50 | XMS_ITS | Clinical Summary ---
Author Organization [facility] [address] Address [facility] [place] [address] Care Team Providers Care Net Programmer Analyst Name Role Phone Ulises Cheng MD Primary Care Provider [phone] Allergies No known active allergies Medications levETIRAcetam (KEPPRA) 750 mg tablet Take 1 tablet (750 mg total) by mouth 2 (two) times a day 01/10/2024 Active Active Problems Problem Noted Date Diagnosed Date Hyperprolactinemia 03/28/2024 Medical History Medical History Date Comments Epilepsy [...] on file Legal Sex Female 11:56 AM BLACK TOP PAVER OPERATOR Gender Identity Not on file Sexual Orientation Not on file Obstetrics History Last Filed Vital Signs Vital Sign Reading Time Taken Comments Blood Pressure 118/70 03/28/2024 2:32 PM BLACK TOP PAVER OPERATOR Pulse 105 03/28/2024 2:32 PM BLACK TOP PAVER OPERATOR Temperature - - Respiratory Rate 15 03/28/2024 2:32 PM BLACK TOP PAVER OPERATOR Oxygen Saturation - - Inhaled Oxygen Concentration - - Weight 98 kg (216 lb) 03/28/2024 2:32 PM BLACK TOP PAVER OPERATOR Height 160 cm (5' 3) 03/28/2024 2:32 PM BLACK TOP PAVER OPERATOR Body Mass Index 38.26 03/28/2024 2:32 PM BLACK TOP PAVER OPERATOR Plan of Treatment Health Maintenance Due Date [...] 5 season) 2023 09/03/2020, 08/10/2020 Influenza Vaccine (Season Ended) 2024 11/23/2020 Pneumococcal vaccine <65 Aged Out No longer eligible based on patient's age to complete this topic Insurance Care Teams Net Programmer Analyst Relationship Specialty Start Date End Date Ulises Cheng MD [address] [place] [address] PCP - General Emergency Medicine 01/23/24
--- OUTSIDE RECORDS SUMMARY | 2024-07-25 15:50 | XMS_ITS | Clinical Summary ---
Author Organization [facility] Care Team Providers Care Harvest Worker Field Crop Name Role Phone Unavailable Primary Care Provider [...]
--- OUTSIDE RECORDS SUMMARY | 2024-07-25 15:50 | XMS_ITS | Clinical Summary ---
Author Organization [facility] Address [address] [place] [address] Care Team Providers Care Fire Medic Name Role Phone Unavailable Primary Care Provider Unavailabl e Allergies No known active allergies Medications levETIRAcetam (KEPPRA) 750 mg Tablet Take 1 Tablet by mouth 2 times daily. 01/10/2024 Active ferrous sulfate 325 mg (65 mg iron) tablet Take 325 mg by mouth daily. Active Active Problems No known active problems Encounters Date Type Department Care Team Description 07/25/2024 3:45 PM CDT Office Visit [facility] Oncology and Hematology - [place] [address] [facility] [address] [place] [address] Varun Burkett MD Arrived 07/04/2024 External Device Data STL ABSTRACTION Provider, Abstract 07/04/2024 External Device Data STL ABSTRACTION Provider, Abstract 07/04/2024 External Device Data STL ABSTRACTION Provider, Abstract 07/03/2024 External Device Data STL ABSTRACTION Provider, Abstract 07/02/2024 External Device Data STL ABSTRACTION Provider, Abstract 05/28/2024 External Device Data STL ABSTRACTION Provider, [...] on file Legal Sex Female 3:27 PM EX CHEF Gender Identity Not on file Sexual Orientation Not on file Last Filed Vital Signs Vital Sign Reading Time Taken Comments Blood Pressure 112/72 07/25/2024 3:37 PM CDT Pulse 86 07/25/2024 3:37 PM CDT Temperature 36.4 C (97.5 F) 07/25/2024 3:37 PM CDT Respiratory Rate 14 07/25/2024 3:37 PM CDT Oxygen Saturation 98% 07/25/2024 3:37 PM CDT Inhaled Oxygen Concentration - - Weight 97.3 kg (214 lb 6.4 oz) 07/25/2024 3:37 P M CDT Height 160 cm (5' 3) 02/27/2024 2:45 PM EX CHEF Body Mass Index 37.98 02/27/2024 2:45 PM EX CHEF Plan of Treatment Health Maintenance Due Date Last Done Comments CHLAMYDIA SCREENING (ANNUAL) 11-24 YEARS 2013 HPV VACCINES (1 - 3-dose series) 2017 DTAP/TDAP/TD VACCINES (1 - Tdap) 2021 HEPATITIS B VACCINES (1 of 3 - 19+ 3-dose series) 06/14 Preventative Visit-Managed Medicaid 2021 CERVICAL CANCER SCREENING 07/11/2023 HPV/Cotest (21-29) 07/11/2023 PAP SMEAR 07/11/2023 INFLUENZA VACCINE (#1) 2023 Insurance [facility] MEDICAID
--- OUTSIDE RECORDS SUMMARY | 2024-07-25 15:50 | XMS_ITS | Clinical Summary ---
Author Organization [facility] Address [address] [place] [address] Care Team Providers Care Clearance Center Manager Name Role Phone Unavailable Primary Care Provider Unavailabl e Source Comments [facility],non-owned Affiliates and Associated Physician Practices is amultiple site organization consisting of ambulatory clinics and hospital sitesin [place], [place], [place] and [place]. This disclosure is being madepursuant to the Care Everywhere program and may not contain all information available regarding this patient. Last updated 17.[facility] ASP64 Allergies No known active allergies Family History [...] 4:27 PM CDT Height 158.8 cm (5' 2.5) 11/16/2018 4:27 PM CDT Body Mass Index [...]
--- OUTSIDE RECORDS SUMMARY | 2024-07-25 15:50 | XMS_ITS | Referral Summary ---
Author Organization [facility] [address] [place] [address] [place] [address] Care Team Providers Care Histotechnician Name Role Phone Ulises Cheng MD Primary Care Provider [phone] Allergies No known active allergies Medications levETIRAcetam [...] on file Legal Sex Female 11:56 AM NEWSPAPER PRESS OPERATOR APPRENTICE Gender Identity Not on file Sexual Orientation Not on file Last Filed Vital Signs Vital Sign Reading Time Taken Comments Blood Pressure 118/70 03/28/2024 2:32 PM NEWSPAPER PRESS OPERATOR APPRENTICE Pulse 105 03/28/2024 2:32 PM NEWSPAPER PRESS OPERATOR APPRENTICE Temperature - - Respiratory Rate 15 03/28/2024 2:32 PM NEWSPAPER PRESS OPERATOR APPRENTICE Oxygen Saturation - - Inhaled Oxygen Concentration - - Weight 98 kg (216 lb) 03/28/2024 2:32 PM NEWSPAPER PRESS OPERATOR APPRENTICE Height 160 cm (5' 3) 03/28/2024 2:32 PM NEWSPAPER PRESS OPERATOR APPRENTICE Body Mass Index 38.26 03/28/2024 2:32 PM NEWSPAPER PRESS OPERATOR APPRENTICE Plan of Treatment Not on file Insurance [facility] Care Teams Histotechnician Relationship Specialty Start Date End Date Ulises Cheng MD [address] [place] [address] PCP - General Emergency Medicine 01/23/24
--- OUTSIDE RECORDS SUMMARY | 2024-07-25 15:50 | XMS_ITS | Continuity of Care Document ---
Author Organization [facility] Address [address] [place] [address] Phone Care Team Providers Care Boat Outboard Engine Mechanic Name Role Phone Evelyn Mahoney Unavailable Unavailable [...] Diagnoses Date Provider Providers Copied on Encounter [facility], [address] [place] [address], [facility], tel:[phone] [facility] Denta Dental examination Apr-2 5- 5 Denzel Rivas. [address] [place], [address], [place]. tel:[phone] [facility], [address] [place] [address], [address], [place] tel:[phone] [facility] Denta Dental examination Apr-1 2- 5 PIERRE Harmon. . [facility], [address] [place] [address], [address], [place] tel:[phone] [facility] Denta Dental examination Sep-0 9 4 PIERRE Harmon. . [facility], [address] [place] [address], [address], [place] tel:[phone] [facility] Denta Dental examination Apr-1 - 4 PIERRE Harmon. . [facility], [address] [place] [address], [address], [place] tel:[phone] [facility] Denta Dental examination Feb-2 4 PIERRE Harmon. . [facility], [address] [place] [address], [address], [place] tel:[phone] [facility] Denta Dental examination 2-201 3 PIERRE Harmon. . [facility], [address] [place] [address], [facility], tel:[phone] [facility] Denta Dental examination 2 3 Andres Ribeiro. [address] [place] [address], [facility]. tel:[phone] [facility], [address] [place] [address], [facility], [place] tel:[phone] [facility] Denta Dental examination 0 8 3 PIERRE Harmon. . [facility], [address] [place] [address], [facility], [place] tel:[phone] [facility] Denta Dental examination May-0 1-201 3 No Information [facility], [address] [place] [address], [facility], [place] tel:[phone] [facility] Denta Dental examination Apr-0 5201 3 No Information [facility], [address] [place] [address], [facility], [place] tel:[phone] [facility] Denta No Information Aug-3 0-201 2 PIERRE Harmon. . [facility], [address] [place] [address], [facility], [place] tel:[phone] [facility] Denta No Information Apr-0 9-201 2 PIERRE Harmon. . Family History Family Member Type Diagnosis Age At Onset No Information Payers Payer name Insurance type Covered alliance party ID Ryan garcia(s) Bang [facility] [id number] Social History Type Description Quantity Date Captured [...]
--- OUTSIDE RECORDS SUMMARY | 2024-07-25 15:50 | XMS_ITS | Encounter Summary ---
Author Organization [facility] [employer] Address [address] [place] [address] Care Team Providers Care Compliance Tester Name Role Phone Unavailable Primary Care Provider Unavailabl e Encounter Details Date Type Department Care Team (Late st Contact Info) Description 07/25/2024 3:45 PM CDT Office Visit [facility] Oncology and Hematology - [place] [address] [facility] [address] [place] [address] Varun Burkett MD [address] [facility] [address] [place] [address] Arrived Social History Tobacco Use Types Packs/Day Years Used Date Smoking Tobacco: Never Smokeless Tobacco: Never Tobacco Cessation:Counseling Given: Not Answered Alcohol Use Standard Drinks/Week Comments Never 0 (1 standard drink = 0.6 oz pur e alcohol) Comments Unknown Sex and Gender Information Value Date Recorded Sex Assigned at Not on file Legal Sex Female 3:27 PM EXPEDITER Gender Identity Not on file Sexual Orientation Not on file documented as of this encounter Last Filed Vital Signs Vital Sign Reading [...] oz) 07/25/2024 3:37 P M CDT Height - - Body Mass Index 37.98 02/27/2024 2:45 PM EXPEDITER documented in this encounter Plan of Treatment Not on file documented as of this encounter Visit Diagnoses Not on filedocumented in this encounter
== END 2024-07-25 15:24 | disposition home or self-care (01) ==
LOC: ANHLAB 15:23
PROVIDERS: Visit Provider Internal Medicine Hematology & Oncology
DX: D72.829 Elevated white blood cell count, unspecified (principal)
CPT/HCPCS: 36415; 85025

== ENCOUNTER 2025-01-08 09:18 | Outpatient (CLI) | payer OTHER, SELFPAY ==
--- OUTSIDE RECORDS SUMMARY | 2025-01-08 09:44 | XMS_ITS | Clinical Summary ---
Author Organization [address] Address [address] [place] [address] Care Team Providers Care Airdox Fitter Name Role Phone Ulises Cheng MD Primary Care Provider [phone] Allergies No known active allergies Medications levETIRAcetam (KEPPRA) 750 mg tablet Take 1 tablet (750 mg total) by mouth 2 (two) times a day 01/10/2024 Active ferrous sulfate 325 mg (65 mg of elemental iron) tablet Take 1 tablet (325 mg total) by mouth daily Active Active Problems Problem Noted Date Diagnosed Date Hyperprolactinemia 03/28/2024 Encounters Date Type Department Care Team Description 10/10/2024 Results Follow-Up [facility] of [address] [address] Quinn Slater MD Thyroid Function [place], Prolactin, hCG, blood, quantitative 10/08/2024 3:45 PM CDT Lab [address] [address] Hyperprolactinemia 10/08/2024 Telephone [facility] Diabetes and Endocrinology [address] [place] [address] Quinn Slater MD MRI [facility]IN REPORT FROM [facility] DA[facility] 11/13/23 from Last 3 Months Medical History Medical [...] on file Legal Sex Female 11:56 AM FOREIGN DIPLOMAT Gender Identity Not on file Sexual Orientation Not on file Last Filed Vital Signs Vital Sign Reading Time Taken Comments Blood Pressure 116/72 10/07/2024 3:36 PM CDT Pulse 68 10/07/2024 3:36 PM CDT Temperature - - Respiratory Rate 15 03/28/2024 2:32 PM FOREIGN DIPLOMAT Oxygen Saturation - - Inhaled Oxygen Concentration - - Weight 96.6 kg (213 lb) 10/07/2024 3:36 PM CDT Height 160 cm (5' 3) 10/07/2024 3:36 PM CDT Body Mass Index 37.73 10/07/2024 3:36 PM CDT Plan of Treatment Health Maintenance [...] Tdap) 07/18/2023 07/17/2013 Covid-19 Vaccine (3 - 2024-2 6 season) 2024 09/03/2020, 08/10/2020 Influenza Vaccine (#1) 2024 11/23/2020 Pneumococcal vaccine <65 Aged Out No longer eligible based on patient's age to complete this topic Procedures Procedure Name Priority Date/Time Associated Diagnosis Comments HCG, BLOOD, QUANTITATIVE Routine 10/08/2024 3:51 PM CDT Hyperprolactinemia PROLACTIN Routine 10/08/2024 3:51 PM CDT Hyperprolactinemia THYROID FUNCTION CASCADE Routine 10/08/2024 3:51 PM CDT Hyperprolactinemia from Last 3 Months Results * Thyroid Function [place] (10/08/2024 3:51 PM CDT) TSH 0.94 0.30 - 4.20 mcIUnit/mL Blood 10/08/2024 3:51 PM CDT 10/08/2024 5:58 PM CDT Quinn Crowe MD LAB BLOOD ORDERABLE S Final Result KRISTINE [address] [place] [address] * (ABNORMAL) Prolactin (10/08/2024 3:51 PM CDT) Prolactin 45.7(H) 4.8 - 23.3 ng/mL Comment:Testing performed by : [facility], [address] [place]., [address] Blood 10/08/2024 3:51 PM CDT 10/08/2024 9:38 PM CDT us Quinn Crowe MD LAB BLOOD ORDERABLE S Final Result Performing Organization Address [facility]/ZIP Co de Phone Number WILLIAN[address] [place] [address] * hCG, blood, quantitative (10/08/2024 3:51 PM CDT) hCG, quant <5.0 0.0 - 5.0 IUnits/L Comment: Interpretive Data Male: < 5 IU/L Non- premenopausal Female: <5 IU/L The Padma hCG Beta Quant assay procedure was used. Results from different manufacturers or methods may not be comparable. Serial testing should be performed using the same method. Interpretive Data was last revised on 2023 Blood 10/08/2024 3:51 PM CDT 10/08/2024 5:58 PM CDT Quinn Crowe MD LAB BLOOD ORDERABLE S Final Result WILLIAN[address] [place] [address] from Last 3 Months Insurance [facility] Care Teams Airdox Fitter Relationship Specialty Start Date End Date lUises Cheng MD [address] [address] PCP - General Emergency Medicine 01/23/24
--- OUTSIDE RECORDS SUMMARY | 2025-01-08 09:44 | XMS_ITS | Clinical Summary ---
Author Organization [facility] Care Team Providers Care Memorial Adviser Name Role Phone Unavailable Primary Care Provider [...] of 3 - 19+ 3-dose series) 2021 Influenza Immunization (#1) 2024 SARS-COV-2 Immunization (3 - season) 2024 09/03/2020, 08/10/2020 Respiratory Syncytial Virus (RSV) Immunization [...]
--- OUTSIDE RECORDS SUMMARY | 2025-01-08 09:44 | XMS_ITS | Clinical Summary ---
[facility] Address [address] [place] [address] Care Team Providers Care Buzzsaw Operator Name Role Phone Unavailable Primary Care Provider Unavailabl e Allergies No known active allergies Medications levETIRAcetam (KEPPRA) 750 mg Tablet Take 1 Tablet by mouth 2 times daily. 01/10/2024 Active ferrous sulfate 325 mg (65 mg iron) tablet Take 325 mg by mouth daily. Active Active Problems No known active problems Encounters Date Type Department Care Team Description 12/03/2024 External Device Data [facility] ABSTRACTION Provider, Abstract 10/29/2024 External Device Data [facility] ABSTRACTION Provider, Abstract [...] on file Legal Sex Female 3:27 PM WIRER HELPER Gender Identity Not on file Sexual Orientation [...] 160 cm (5' 3) 02/27/2024 2:45 PM WIRER HELPER Body Mass Index 37.98 02/27/2024 2:45 PM WIRER HELPER Plan of Treatment Upcoming Encounters Date Type Department Care Team (Late st Contact Info) Description 01/27/2025 3:45 PM WIRER HELPER Office Visit [facility] On[facility] and Hematology - Sher [address] [facility] [address] [place] [address] Varun Burkett MD [address] [place] [address] Health Maintenance Due Date Last Done Comments CHLAMYDIA SCREENING (ANNUAL) 11-24 YEARS 2013 HPV VACCINES (1 - 3-dose series) 2017 DTAP/TDAP/TD VACCINES (1 - Tdap) 2021 HEPATITIS B VACCINES (1 of 3 - 19+ 3-dose series) 06/14 CERVICAL CANCER SCREENING 07/11/2023 HPV/Cotest (21-29) 07/11/2023 PAP SMEAR 07/11/2023 INFLUENZA VACCINE (#1) 2024 Insurance [facility] MEDICAID
--- OUTSIDE RECORDS SUMMARY | 2025-01-08 09:44 | XMS_ITS | Clinical Summary ---
Author Organization [facility] Address [address] [place] [address] Care Team Providers Care Cad Draftsman Name Role Phone Unavailable Primary Care Provider Unavailabl e Source Comments [facility],non-owned Affiliates and Associated Physician Practices is amultiple site organization consisting of ambulatory clinics and hospital sitesin [place], [place], [place] and [place]. This disclosure is being madepursuant to the Care Everywhere program and may not contain all information available regarding this patient. Last updated 17.[facility] [place] Allergies No known active allergies Family History [...] of 3 - 19+ 3-dose series) 2021 DEPRESSION SCREENING 02/14/2024 COVID-19 VACCINE (1 - 2024-2 6 season) 2024 INFLUENZA VACCINE (#1) 2024 ZOSTER VACCINE (1 of 2) 2052 [...]
== END 2025-01-08 09:19 | disposition home or self-care (01) ==
LOC: ANHLAB 09:18
PROVIDERS: Visit Provider Psychiatry & Neurology Neurology
DX: G40.909 Epilepsy, unspecified, not intractable, without status epilepticus (principal)
CPT/HCPCS: 80177

== ENCOUNTER 2025-01-24 11:25 | Outpatient (CLI) | payer OTHER, SELFPAY ==
[2025-01-24 11:42] LABS: Hematocrit 40.7 % (37.0-47.0); Hemoglobin 12.9 g/dL (12.0-15.0); Immature Granulocyte Percent A 0.4 % (0-0.5); Lymphocytes Absolute Auto 3.35 K/mm3 (0.9-3.2); Mean Corpuscular HGB Conc 31.7 g/dl (32-36); Mean Corpuscular Hemoglobin 26.5 pg (26-34); Mean Corpuscular Volume 83.6 fl (80-100); Nucleated Red Blood Cells Absolute Auto 0.000 K/mm3 (0.0-0.012); Nucleated Red Blood Cells Perc 0.0 % (0.0-0.2); Platelet Count Result 320 k/mm3 (150-375); Red Blood Count 4.87 M/mm3 (4.2-5.4); White Blood Count 11.1 K/mm3 (4.5-10.0)
[2025-01-24 13:07] LABS: Alanine Aminotransferase 16 U/L (6-35); Albumin Level 4.6 g/dL (3.5-5.1); Alkaline Phosphatase 71 U/L (38-126); Anion Gap 6 mmol/L (4-12); Aspartate Amino Transferase 28 U/L (14-36); Bilirubin,Total 0.5 mg/dL (0.2-1.3); Blood Urea Nitrogen 12 mg/dL (7-17); Calcium 9.7 mg/dL (8.4-10.2); Carbon Dioxide 27 mmol/L (22-30); Chloride 105 mmol/L (98-107); Estimated Glomerular Filt Rate > 60; Glucose 89 mg/dL (65-110); Iron 36 ug/dL (37-170); Potassium 4.4 mmol/L (3.4-5.0); Sodium 138 mmol/L (137-145); Total Protein 8.5 g/dL (6.3-8.2)
[2025-01-24 13:42] LABS: Percent Iron Saturation 9 % (20-50)
[2025-01-24 13:48] LABS: Ferritin 34.40 ng/mL (6.24-137)
== END 2025-01-24 11:26 | disposition home or self-care (01) ==
LOC: ANHLAB 11:27
PROVIDERS: Visit Provider Internal Medicine Hematology & Oncology
DX: D64.9 Anemia, unspecified (principal)
CPT/HCPCS: 36415; 80053; 82728; 83540; 83550; 85025